=== PATIENT | female | born 1950 | race Caucasian/White ===

== ENCOUNTER 2017-11-19 14:25 | Emergency (ER) | payer MEDICARE ==
--- NOTE | 2017-11-19 15:23 | EDPHYS ---
Physician Documentation [facility] Name: Kenyatta Sosa Age: 67 yrs Sex: Female : 1950 Arrival Date: 11/19/2017 Time: 14:29 Bed Treatment Private MD: ED Physician Eduardo Kamara HPI: 11/19 15:19 This 67 yrs old Female presents to ER via Ambulatory with complaints of Dog jr8 Scratches. 15:19 Onset: The symptoms/episode began/occurred acutely, yesterday. Modifying factors: The jr8 symptoms are alleviated by nothing, the symptoms are aggravated by nothing. Associated signs and symptoms: The patient has no apparent associated signs or symptoms. The patient has not experienced similar symptoms in the past. The patient has not recently seen a physician. stated that she was petting dog. When she directed her attention to something else dog wanted more petting and reached up to grab her arm with its paw causing small skin tears. PCP referred her to ED for evaluation. Historical: - Allergies: 15:04 No Known Allergies; aa5 - Home Meds: 15:04 lisinopril Oral [Active]; aa5 - PMHx: 15:04 Hypertension; aa5 - PSHx: 15:04 Hysterectomy; knees; back sx; Feet; ; aa5 - Immunization history:: Last tetanus immunization: > 10 years ago. - Social history:: Smoking status: Patient/guardian denies using tobacco. - Ebola Screening: : No symptoms or risks identified at this time. ROS: 15:19 Eyes: Negative for injury, pain, redness, and discharge, ENT: Negative for injury, jr8 pain, and discharge, Neck: Negative for injury, pain, and swelling, Cardiovascular: Negative for chest pain, palpitations, and edema, Respiratory: Negative for shortness of breath, cough, wheezing, and pleuritic chest pain, Abdomen/GI: Negative for abdominal pain, nausea, vomiting, diarrhea, and constipation, Back: Negative for injury and pain, MS/Extremity: Negative for injury and deformity, Neuro: Negative for headache, weakness, numbness, tingling, and seizure. 15:19 Skin: Positive for avulsion, of the right wrist. Exam: 15:19 Cardiovascular: Regular rate and rhythm with a normal S1 and S2. No gallops, murmurs, jr8 or rubs. Normal PMI, no JVD. No pulse deficits. Respiratory: Lungs have equal breath sounds bilaterally, clear to auscultation and percussion. No rales, rhonchi or wheezes noted. No increased work of breathing, no retractions or nasal flaring. MS/ Extremity: Pulses equal, no cyanosis. Neurovascular intact. Full, normal range of motion. Neuro: Awake and alert, GCS 15, oriented to person, place, time, and situation. Cranial nerves II-XII grossly intact. Motor strength 5/5 in all extremities. Sensory grossly intact. Cerebellar exam normal. Normal gait. 15:19 Skin: small skin tears to three areas on wrist. No bleeding or oozing. No erythema. No lacerations noted . Vital Signs: 15:04 BP 143 / 83; Pulse 96; Resp 16 S; Temp 98.4(TE); Pulse Ox 96% on R/A; Weight 111.58 kg aa5 (R); Height 5 ft. 6 in. (167.64 cm) (R); Pain 5/10; 15:04 Body Mass Index 39.71 (111.58 kg, 167.64 cm) aa5 MDM: 15:12 Patient medically screened. jr8 15:19 Data reviewed: vital signs, nurses notes, and as a result, I will discharge patient. jr8 Data interpreted: Pulse oximetry: on room air is 96 %. Interpretation: normal. Counseling: I had a detailed discussion with the patient and/or guardian regarding: the historical points, exam findings, and any diagnostic results supporting the discharge/admit diagnosis, the need for outpatient follow up, a family practitioner, to return to the emergency department if symptoms worsen or persist or if there are any questions or concerns that arise at home. 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 Exp: sg 12/13/2019. Lot #: [id number]. } Route: IM; Site: right deltoid; Disposition: 11/20 12:08 Co-signature as Attending Physician, Eduardo Kamara MD I agree with the assessment and norman plan of care. Disposition: 11/19/17 15:22 Discharged to Home. Impression: Avulsion of skin . - Condition is Stable. - Discharge Instructions: Skin Tear Care. - Prescriptions for Keflex 500 mg Oral Capsule - take 1 capsule by ORAL route every 8 hours for 7 days; 21 capsule. - Medication Reconciliation Form, Thank You Letter, Antibiotic Education, Prescription Opioid Use form. - Follow up: Private Physician; When: 1 week; Reason: Wound Recheck, Recheck today's complaints, Continuance of care, Re-evaluation by your physician. - Problem is new. - Symptoms have improved. Signatures: Ramon Taylor RN RN sg Eduardo Kamara MD MD cha Calderon, Audri, RN RN aa5 Kiel Burgos PA PA jr8 Corrections: (The following items were deleted from the chart) 11/19 15:42 15:22 11/19/2017 15:22 Discharged to Home. Impression: Avulsion of skin . Condition is sg Stable. Forms are Medication Reconciliation Form, Thank You Letter, Antibiotic Education, Prescription Opioid Use. Follow up: Private Physician; When: 1 week; Reason: Wound Recheck, Recheck today's complaints, Continuance of care, Re-evaluation by your physician. Problem is new. Symptoms have improved. jr8 15:52 15:42 11/19/2017 15:22 Discharged to Home. Impression: Avulsion of skin . Condition is jr8 Stable. Discharge Instructions: Skin Tear Care. Forms are Thank You Letter, Antibiotic Education, Prescription Opioid Use, Medication Reconciliation Form. Follow up: Private Physician; When: 1 week; Reason: Wound Recheck, Recheck today's complaints, Continuance of care, Re-evaluation by your physician. Problem is new. Symptoms have improved. sg
--- NOTE | 2017-11-19 15:23 | ER ---
Nurse's Notes [facility] Name: Kenyatta Sosa Age: 67 yrs Sex: Female : 1950 Arrival Date: 11/19/2017 Time: 14:29 Bed Treatment Private MD: Diagnosis: Avulsion of skin Presentation: 11/19 15:02 Presenting complaint: Presenting complaint: Patient states: "my dog scratched me aa5 yesterday". Skin tear noted to right wrist, dressing noted. Transition of care: patient was not received from another setting of care. Onset of symptoms was October 2017. Risk Assessment: Do you want to hurt yourself or someone else? Patient reports no desire to harm self or others. Initial Sepsis Screen: Does the patient meet any 2 criteria? No. Patient's initial sepsis screen is negative. Does the patient have a suspected source of infection? No. Patient's initial sepsis screen is negative. Care prior to arrival: None. 15:02 Method Of Arrival: Ambulatory aa5 15:02 Acuity: JAMES 5 aa5 Historical: - Allergies: 15:04 No Known Allergies; aa5 - Home Meds: 15:04 lisinopril Oral [Active]; aa5 - PMHx: 15:04 Hypertension; aa5 - PSHx: 15:04 Hysterectomy; knees; back sx; Feet; ; aa5 - Immunization history:: Last tetanus immunization: > 10 years ago. - Social history:: Smoking status: Patient/guardian denies using tobacco. - Ebola Screening: : No symptoms or risks identified at this time. Vital Signs: 15:04 BP 143 / 83; Pulse 96; Resp 16 S; Temp 98.4(TE); Pulse Ox 96% on R/A; Weight 111.58 kg aa5 (R); Height 5 ft. 6 in. (167.64 cm) (R); Pain 5/10; 15:04 Body Mass Index 39.71 (111.58 kg, 167.64 cm) aa5 ED Course: 14:29 Patient arrived in ED. mr 15:03 Triage completed. aa5 15:03 Arm band placed on. aa5 15:07 [facility]. jr8 15:08 Eduardo Kamara MD is Attending Physician. jr8 15:18 Taylor, Ramon, RN is Primary Nurse. 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 Exp: 12/13/2019. Lot #: [id number]. } Route: IM; Site: right deltoid; Outcome: 15:22 Discharge ordered by MD. fernandes 15:42 Patient left the ED. 15:52 Patient left the ED. jr8 Signatures: Ramon Taylor RN RN sg Rivera, Maria mr RobbinsCarol RN RN aa5 Kiel uBrgos PA PA jr8
[2017-11-19] MEDS ORDERED: TETANUS & DIPHTHERIA TOX,ADULT 0.5 ML VIAL ONE (15:28)
== END 2017-11-19 15:52 | disposition home or self-care (01) ==
LOC: ER 14:25
DX: S61.501A Unspecified open wound of right wrist, initial encounter (principal); X58.XXXA Exposure to other specified factors, initial encounter; Y93.89 Activity, other specified; Y92.9 Unspecified place or not applicable; Z23 Encounter for immunization; I10 Essential (primary) hypertension
CPT/HCPCS: 90714; 99282

== ENCOUNTER 2022-03-02 15:48 | Inpatient (IN) | payer OTHER ==
--- OUTSIDE RECORDS SUMMARY | 2022-03-02 15:50 | XMS REPORT | Continuity of Care Document ---
:1950 Author Organization [facility] t Address [address] [place] [id number] Care Team Providers Name Role Phone Unavailable Unavailable Unavailable Problems This patient has no known problems. Allergies, Adverse Reactions, Alerts This patient has no known allergies or adverse reactions. Medications This patient has no known medications. Procedures This patient has no known procedures. Results Test Description Test Time Test Results Result Source Comments Comments XR Knee 3 Views Patient: KATJA GALE MRN: Right 9 [id number] 18:41:16 Date/Time12/02/2018 18:21 CDTReason for ExamInjuryReportDictation location [id number] knee 3 viewsHISTORY: Pain following injury.COMMENT: Patient is status post right knee arthroplasty. There is anatomic alignment of the prosthesis with minimal lucency surrounding the tibial prosthesis. No acute fracture or dislocation and no joint effusion. No focal lesion or destructive process seen. Surrounding soft tissues are intact.IMPRESSION: No acute findings of the right knee. Final Dictated by: MD Lanier Phebe CDictated DT/TM: 12/02/2018 6:40 pmSigned by: MD Lanier Phebe CSigned (Electronic Signature): 12/02/2018 6:41 pm
[2022-03-02 16:58] LABS: Hematocrit 39.8 % (36.0-45.0); Lymphocytes % 17.4 % (15.3-44.8); MPV 8.9 fL (7.6-11.3); RBC Red Blood Cell Count 4.52 M/uL (3.86-4.86)
[2022-03-02 17:06] LABS: Protime INR 1.03
[2022-03-02 17:26] LABS: Albumin 3.5 g/dL (3.4-5.0); Bilirubin Total 0.4 mg/dL (0.2-1.0); Potassium 3.2 mmol/L (3.5-5.1); Protein, Total 6.7 g/dL (6.4-8.2)
[2022-03-02] MEDS ORDERED: HYDROCODONE/CHLORPHEN 5 ML/OSYR ONE (17:28)
[2022-03-02] MEDS ORDERED: ASPIRIN 81 MG CHEWABLE TABLET ONE (17:29)
[2022-03-02] MEDS ORDERED: ACETAMINOPHEN 500 MG TAB PO PRN (17:37)
[2022-03-02] MEDS ORDERED: ONDANSETRON 4 MG/2 ML VIAL IV PRN (17:37)
[2022-03-02] MEDS ORDERED: CEFTRIAXONE 1000 MG/VIAL ONE (17:44)
[2022-03-02] MEDS ORDERED: NA CHLORIDE 0.9% 50 ML IV ONE (17:44)
--- NOTE | 2022-03-02 17:46 | ER ---
Nurse's Notes [facility] Name: Kenyatta Sosa Age: 71 yrs Sex: Female : 1950 Arrival Date: 03/02/2022 Time: 15:49 Bed 25 Private MD: Sayra Moctezuma C Diagnosis: COPD/ Chronic obstructive pulmonary disease with (acute) exacerbation;Failed outpatient therapy Presentation: 03/02 15:59 Chief complaint: Patient states: she was sent by Dr. Moctezuma for painful breathing. ap3 patient states that it is painful to take a deep breath and it started last night. Coronavirus screen: Client presents with at least one sign or symptom that may indicate coronavirus-19. Ebola Screen: No symptoms or risks identified at this time. Initial Sepsis Screen: Does the patient meet any 2 criteria? HR > 90 bpm. Does the patient have a suspected source of infection? No. Patient's initial sepsis screen is negative. Risk Assessment: Do you want to hurt yourself or someone else? Patient reports no desire to harm self or others. Onset of symptoms was March 01, 2022. 15:59 Method Of Arrival: Wheelchair ap3 15:59 Acuity: JAMES 3 ap3 Triage Assessment: 16:03 General: Appears uncomfortable, ill, Behavior is cooperative, appropriate for age. ap3 Pain: Complains of pain in chest Aggravated by breathing. Neuro: Level of Consciousness is awake, alert, obeys commands, Oriented to person, place, time, situation, Speech is normal. Cardiovascular: Patient's skin is warm and dry. Respiratory: Reports pain with respiration since last night Onset: The symptoms/episode began/occurred yesterday. 16:03 Respiratory: Airway is patent Respiratory effort is even, unlabored, Respiratory ap3 pattern is regular, symmetrical. 17:00 Respiratory: the patient has moderate shortness of breath. eh3 Historical: - Allergies: 16:02 No Known Allergies; ap3 - Home Meds: 16:02 lisinopril Oral [Active]; Celebrex Oral [Active]; gabapentin oral [Active]; ap3 - PMHx: 16:02 Hypertension; Arthritis; ap3 - Immunization history:: Client reports receiving the 2nd dose of the Covid vaccine, Flu vaccine is not up to date. - Social history:: Smoking status: Patient denies any tobacco usage or history of. Screenin:03 Abuse screen: Denies threats or abuse. Nutritional screening: No deficits noted. ap3 Tuberculosis screening: No symptoms or risk factors identified. 17:00 Fall Risk None identified. eh3 Assessment: 17:00 General: Appears in no apparent distress. uncomfortable, Behavior is calm, cooperative, eh3 appropriate for age. Pain: Complains of pain in mid-sternal area and left posterior lower lobe Pain does not radiate. Pain currently is 8 out of 10 on a pain scale. Neuro: Level of Consciousness is awake, alert, obeys commands, Oriented to person, place, time, situation. Cardiovascular: Capillary refill < 3 seconds Patient's skin is warm and dry. Rhythm is sinus rhythm. Respiratory: Reports shortness of breath at rest cough that is productive, persistent pain with cough Airway is patent Respiratory effort is even, unlabored, Respiratory pattern is regular, symmetrical, Breath sounds are diminished in left posterior lower lobe and left posterior upper lobe. GI: No signs and/or symptoms were reported involving the gastrointestinal system. Abdomen is round non-distended. : No signs and/or symptoms were reported regarding the genitourinary system. EENT: No signs and/or symptoms were reported regarding the EENT system. Derm: No signs and/or symptoms reported regarding the dermatologic system. Musculoskeletal: No signs and/or symptoms reported regarding the musculoskeletal system. Circulation, motion, and sensation intact. Range of motion: intact in all extremities. 18:00 Reassessment: Patient appears in no apparent distress at this time. Patient and/or eh3 family updated on plan of care and expected duration. Pain level reassessed. Patient is alert, oriented x 3, equal unlabored respirations, skin warm/dry/pink. Pt complains of 10/10 headache, provider notified. 19:00 Reassessment: Patient appears in no apparent distress at this time. Patient and/or eh3 family updated on plan of care and expected duration. Pain level reassessed. Patient is alert, oriented x 3, equal unlabored respirations, skin warm/dry/pink. Pt states head still hurts, provider notified. 20:00 Reassessment: Patient appears in no apparent distress at this time. Patient and/or eh3 family updated on plan of care and expected duration. Pain level reassessed. Patient is alert, oriented x 3, equal unlabored respirations, skin warm/dry/pink. 20:26 Reassessment: Attempted to call report to 4th floor, nurse busy and states she will 3 call back. 20:56 Reassessment: Attempted to call report to 4th floor, nurse states she is busy and will 3 call back. 21:00 Reassessment: Patient appears in no apparent distress at this time. Patient and/or 3 family updated on plan of care and expected duration. Pain level reassessed. Patient is alert, oriented x 3, equal unlabored respirations, skin warm/dry/pink. 21:30 Reassessment: Attempted to call report to 4th floor, nurse busy and will call back. eh3 22:00 Reassessment: Attempted to call report to 4th floor, nurse busy and will call back. eh3 22:00 Reassessment: Patient appears in no apparent distress at this time. Patient and/or eh3 family updated on plan of care and expected duration. Pain level reassessed. Patient is alert, oriented x 3, equal unlabored respirations, skin warm/dry/pink. Vital Signs: 15:59 BP 159 / 73; Pulse 100; Resp 19; Temp 98.9; Pulse Ox 96% on R/A; Weight 110.68 kg; ap3 Height 5 ft. 7 in. (170.18 cm); 17:00 BP 134 / 90; Pulse 84; Resp 18; Pulse Ox 98% on R/A; eh3 18:00 BP 137 / 75; Pulse 86; Resp 16; Pulse Ox 98% on R/A; eh3 19:00 BP 139 / 55; Pulse 78; Resp 16; Pulse Ox 100% on R/A; eh3 15:59 Body Mass Index 38.22 (110.68 kg, 170.18 cm) ap3 Vitals: 17:00 Cardiac Rhythm Assessment Sinus rhythm. 3 ED Course: 15:49 Patient arrived in ED. rg4 15:49 Sayra Moctezuma MD is Private Physician. rg4 15:55 Jillian Georges, RN is Primary Nurse. ap3 15:58 Vickie Floyd FNP-C [facility]. snw 15:58 Lefty Matthew MD is Attending Physician. snw 16:02 Triage completed. ap3 16:04 Arm band placed on right wrist. ap3 17:00 Patient has correct armband on for positive identification. Bed in low position. Call 3 light in reach. Side rails up X2. Adult w/ patient. Client placed on continuous cardiac and pulse oximetry monitoring. NIBP monitoring applied. Door closed. Noise minimized. Lights dimmed. Warm blanket given. 17:00 IV is patent, with fluids infusing freely, with good blood return. Patient maintains 3 SpO2 saturation greater than 95% on room air. 17:13 Blood Culture Adult (2) Sent. eh3 17:13 CMP Sent. eh3 17:13 Lactate w/ 2H reflex if indic. Sent. eh3 17:36 COVID-19/FLU A+B/RSV Sent. eh3 17:45 Sayra Moctezuma MD is Hospitalizing Provider. [facility] 19:39 Creatine Phosphokinase Sent. eh3 19:54 No provider procedures requiring assistance completed. Patient admitted, IV remains in eh3 place. Administered Medications: 17:35 Drug: Tussionex Pennkinetic ER (chlorpheniramine-hydrocodone) Suspension 5 ml Route: PO;3 19:30 Follow up: Response: Pain is unchanged, physician notified 3 17:40 Not Given (Patient Refused): Aspirin Chewable Tablet 324 mg PO once; 81 mg tablets x 4 eh3 17:50 Drug: Rocephin (cefTRIAXone) 1 grams Route: IV; Rate: calculated rate; Site: right 3 antecubital; 18:00 Follow up: Response: No adverse reaction; IV Status: Completed infusion; IV Intake: [id number] 18:15 Drug: Potassium Effervescent Tablet 50 mEq Route: PO; 3 19:30 Follow up: Response: No adverse reaction 3 18:15 Drug: Tylenol 1000 mg Route: PO; eh3 19:29 Follow up: Response: Pain is unchanged, physician notified 3 19:14 Drug: NS 0.9% 500 ml Route: IV; Rate: bolus; Site: right antecubital; 3 20:24 Follow up: IV Status: Completed infusion; IV Intake: 500ml 3 Medication: 19:54 VIS not applicable for this client. eh3 Intake: 18:00 IV: 50ml; Total: 50ml. eh3 20:24 IV: 500ml; Total: 550ml. 3 Outcome: 17:46 Decision to Hospitalize by Provider. snw 19:54 Admitted to Tele accompanied by tech, family with patient, via wheelchair, room 413, eh3 with chart, Report called to [place] 19:54 Condition: stable 19:54 Instructed on the need for admit. 22:35 Patient left the ED. eh3 Signatures: Vickie Floyd, TATTOO TECHNICIAN-C TATTOO TECHNICIAN-Ning Felix rg4 Jillian Georges RN RN ap3 Sasha Zuniga RN RN eh3 Corrections: (The following items were deleted from the chart) 22:34 19:54 Admitted to ER Hold. Please see [facility] for further documentation. eh3 eh3
--- NOTE | 2022-03-02 17:47 | EDPHYS ---
Physician Documentation [facility] Name: Kenyatta Sosa Age: 71 yrs Sex: Female : 1950 Arrival Date: 03/02/2022 Time: 15:49 Bed 25 Private MD: Sayra Moctezuma C ED Physician Lefty Matthew HPI: 03/02 16:07 This 71 yrs old Female presents to ER via Wheelchair with complaints of Breathing snw Difficulty. 16:07 The patient has shortness of breath at rest. Onset: The symptoms/episode began/occurred snw acutely. Duration: The symptoms are continuous. Associated signs and symptoms: Pertinent positives: fever. Severity of symptoms: At their worst the symptoms were moderate severe. The patient has experienced similar episodes in the past. The patient has been recently seen by a physician: the patient's primary care provider, Dr. Moctezuma with similar presenting complaints, pt on amoxil without improvement, failed outpatient therapy, plan to admit. Historical: - Allergies: 16:02 No Known Allergies; ap3 - Home Meds: 16:02 lisinopril Oral [Active]; Celebrex Oral [Active]; gabapentin oral [Active]; ap3 - PMHx: 16:02 Hypertension; Arthritis; ap3 - Immunization history:: Client reports receiving the 2nd dose of the Covid vaccine, Flu vaccine is not up to date. - Social history:: Smoking status: Patient denies any tobacco usage or history of. ROS: 16:06 Eyes: Negative for injury, pain, redness, and discharge, ENT: Negative for injury, snw pain, and discharge, Neck: Negative for injury, pain, and swelling, Cardiovascular: Negative for chest pain, palpitations, and edema. 16:06 Abdomen/GI: Negative for abdominal pain, nausea, vomiting, diarrhea, and constipation, Back: Negative for injury and pain, : Negative for injury, bleeding, discharge, and swelling, MS/Extremity: Negative for injury and deformity, Skin: Negative for injury, rash, and discoloration, Neuro: Negative for headache, weakness, numbness, tingling, and seizure. 16:06 Constitutional: Positive for body aches, chills, fatigue, fever, malaise. 16:06 Respiratory: Positive for cough, shortness of breath, wheezing. Exam: 16:05 Head/Face: Normocephalic, atraumatic. Eyes: Pupils equal round and reactive to light, snw extra-ocular motions intact. Lids and lashes normal. Conjunctiva and sclera are non-icteric and not injected. Cornea within normal limits. Periorbital areas with no swelling, redness, or edema. ENT: Nares patent. No nasal discharge, no septal abnormalities noted. Tympanic membranes are normal and external auditory canals are clear. Oropharynx with no redness, swelling, or masses, exudates, or evidence of obstruction, uvula midline. Mucous membranes moist. Neck: Trachea midline, no thyromegaly or masses palpated, and no cervical lymphadenopathy. Supple, full range of motion without nuchal rigidity, or vertebral point tenderness. No Meningismus. Chest/axilla: Normal chest wall appearance and motion. Nontender with no deformity. No lesions are appreciated. 16:05 Abdomen/GI: Soft, non-tender, with normal bowel sounds. No distension or tympany. No guarding or rebound. No evidence of tenderness throughout. 16:05 Skin: Warm, dry with normal turgor. Normal color with no rashes, no lesions, and no evidence of cellulitis. Neuro: Awake and alert, GCS 15, oriented to person, place, time, and situation. Cranial nerves II-XII grossly intact. Motor strength 5/5 in all extremities. Sensory grossly intact. Cerebellar exam normal. Normal gait. 16:05 Constitutional: The patient appears alert, awake, uncomfortable. 16:05 Cardiovascular: Rate: tachycardic, Rhythm: regular, JVD: is not appreciated. 16:05 Respiratory: the patient does not display signs of respiratory distress, Respirations: prolonged exhalation, shallow respirations, tachypnea, Breath sounds: rhonchi, that are moderate, are heard in the left posterior upper lobe and left posterior lower lobe, wheezin:05 Back: muscle spasm, is appreciated in the left scapular area. 16:05 Musculoskeletal/extremity: using cane. Vital Signs: 15:59 BP 159 / 73; Pulse 100; Resp 19; Temp 98.9; Pulse Ox 96% on R/A; Weight 110.68 kg; ap3 Height 5 ft. 7 in. (170.18 cm); 17:00 BP 134 / 90; Pulse 84; Resp 18; Pulse Ox 98% on R/A; eh3 18:00 BP 137 / 75; Pulse 86; Resp 16; Pulse Ox 98% on R/A; eh3 19:00 BP 139 / 55; Pulse 78; Resp 16; Pulse Ox 100% on R/A; eh3 15:59 Body Mass Index 38.22 (110.68 kg, 170.18 cm) ap3 MDM: 16:04 Patient medically screened. snw 17:47 Antibiotic administration: COPD exacerbation with failed outpatient amoxil therapy. snw Data reviewed: vital signs, nurses notes. Data interpreted: Pulse oximetry: on room air is 98 %. Interpretation: normal. Counseling: I had a detailed discussion with the patient and/or guardian regarding: the historical points, exam findings, and any diagnostic results supporting the discharge/admit diagnosis, the presence of at least one elevated blood pressure reading (>120/80) during this emergency department visit, lab results, radiology results, the need for further work-up and treatment in the hospital. Physician consultation: A Jose Elias TONY was called at 17:48, regarding admission, patient's condition, discussed failed outpatient therapy. 03/02 16:00 Order name: Blood Culture Adult (2) snw 03/02 16:00 Order name: CBC with Diff; Complete Time: 17:06 snw 03/02 16:00 Order name: CMP; Complete Time: 17:30 snw 03/02 16:00 Order name: Lactate w/ 2H reflex if indic.; Complete Time: 17:17 snw 03/02 16:00 Order name: Protime (+inr); Complete Time: 17:07 snw 03/02 16:00 Order name: Ptt, Activated; Complete Time: 17:07 snw 03/02 16:00 Order name: Troponin High Sensitivity; Complete Time: 17:30 snw 03/02 16:48 Order name: COVID-19/FLU A+B/RSV; Complete Time: 18:10 snw 03/02 17:43 Order name: Glucose, Ancillary Testing; Complete Time: 17:44 EDMS 03/02 17:45 Order name: Urinalysis EDMS 03/02 17:45 Order name: Basic Metabolic Panel EDMS 03/02 17:45 Order name: Basic Metabolic Panel EDMS 03/02 17:45 Order name: CBC with Automated Diff EDMS 03/02 17:45 Order name: CBC with Automated Diff EDMS 03/02 17:45 Order name: Comprehensive Metabolic Panel EDMS 03/02 17:45 Order name: Comprehensive Metabolic Panel EDMS 03/02 17:45 Order name: Creatine Phosphokinase EDMS 03/02 17:45 Order name: Creatine Phosphokinase EDMS 03/02 17:45 Order name: Creatine Phosphokinase EDMS 03/02 17:45 Order name: Creatine Phosphokinase EDMS 03/02 17:45 Order name: Lipid Profile EDMS 03/02 17:45 Order name: Lipid Profile EDMS 03/02 17:45 Order name: Magnesium EDMS 03/02 17:45 Order name: Magnesium EDMS 03/02 17:45 Order name: Phosphorus EDMS 03/02 17:45 Order name: Phosphorus EDMS 03/02 17:49 Order name: Chest Pa And Lat (2 Views) XRAY snw 03/02 19:07 Order name: RAD; Complete Time: 19:09 EDMS 03/02 16:00 Order name: EKG; Complete Time: 16:01 snw 03/02 16:00 Order name: Accucheck; Complete Time: 17:35 snw 03/02 16:00 Order name: Cardiac monitoring; Complete Time: 17:13 snw 03/02 16:00 Order name: EKG - Nurse/Tech; Complete Time: 17:27 snw 03/02 16:00 Order name: IV Saline Lock - Large Bore; Complete Time: 17:13 snw 1208 16:00 Order name: Labs collected and sent; Complete Time: 17:13 snw 08 16:00 Order name: O2 Per Protocol; Complete Time: 17:13 snw 08 16:00 Order name: O2 Sat Monitoring; Complete Time: 17:13 snw 08 16:00 Order name: Vital Signs; Complete Time: 17:29 snw 03/02 17:45 Order name: Heart Healthy EDMS EC:25 Rate is 83 beats/min. Rhythm is regular. QRS [place] is Normal. AR interval is normal. No snw ST changes noted. Clinical impression: NSR w/ Non-specific ST/T Changes. Administered Medications: 17:35 Drug: Tussionex Pennkinetic ER (chlorpheniramine-hydrocodone) Suspension 5 ml Route: PO;eh3 19:30 Follow up: Response: Pain is unchanged, physician notified [facility] 17:40 Not Given (Patient Refused): Aspirin Chewable Tablet 324 mg PO once; 81 mg tablets x 4 [facility] 17:50 Drug: Rocephin (cefTRIAXone) 1 grams Route: IV; Rate: calculated rate; Site: right [facility] antecubital; 18:00 Follow up: Response: No adverse reaction; IV Status: Completed infusion; IV Intake: [id number] 18:15 Drug: Potassium Effervescent Tablet 50 mEq Route: PO; [facility] 19:30 Follow up: Response: No adverse reaction [facility] 18:15 Drug: Tylenol 1000 mg Route: PO; [facility] 19:29 Follow up: Response: Pain is unchanged, physician notified [facility] 19:14 Drug: NS 0.9% 500 ml Route: IV; Rate: bolus; Site: right antecubital; [facility] 20:24 Follow up: IV Status: Completed infusion; IV Intake: 500ml [facility] Disposition Summary: 03/02/22 17:46 Hospitalization Ordered Hospitalization Status: Inpatient Admission snw Provider: Sayra Moctezuma Location: Telemetry/MedSur (Inpatient) snw Condition: Stable snw Problem: an acute exacerbation snw Symptoms: have worsened snw Bed/Room Type: Standard snw Room Assignment: 413(03/02/22 21:04) Diagnosis - COPD/ Chronic obstructive pulmonary disease with (acute) exacerbation snw - Failed outpatient therapy snw Forms: - Medication Reconciliation Form snw - SBAR form snw Addendum: 03/05/2022 19:09 Co-signature as Attending Physician, Lefty Matthew MD. r n Signatures: Dispatcher [employer] Vickie Allen, MILL ROLL OPERATOR-C MILL ROLL OPERATOR-Csnw Lefty Matthew MD MD rn Garcia, Cindy RN RN Jillian Georges RN RN [facility] Sasha Zuniga RN RN [facility] Jewell Sky [facility] Corrections: (The following items were deleted from the chart) 03/02 20:22 17:46 snw rv1 21:04 20:22 411 rv1 cg
[2022-03-02] MEDS: NA CHLORIDE 0.9% 1,000 ML IV SCH (18:00)
[2022-03-02] MEDS: ENOXAPARIN 40 MG/0.4 ML SQ SCH (18:00)
[2022-03-02] MEDS ORDERED: Levofloxacin500mg IV 500 MG/100 ML BAG IV SCH (18:00)
[2022-03-02 18:09] LABS: SARS-COV-2 RT PCR NEGATIVE (NEGATIVE)
[2022-03-02] MEDS ORDERED: POTASSIUM 25 MEQ EFFERV TAB ONE (18:11)
[2022-03-02] MEDS ORDERED: ACETAMINOPHEN 500 MG TAB ONE (18:11)
--- NOTE | 2022-03-02 19:06 | RAD REPORT ---
EXAM DESCRIPTION: RAD - Chest Pa And Lat (2 Views) - 03/02/2022 6:49 pm CLINICAL HISTORY: COPD Chest pain. COMPARISON: Chest Pa And Lat (2 Views) dated 08/02/2021 TECHNIQUE: PA and lateral views of the chest were obtained. FINDINGS: The lungs are hyperexpanded compatible with COPD. Small hiatal hernia. The heart is upper limit of normal in size. No fracture or aggressive bony process. IMPRESSION: COPD without acute process identified.
[2022-03-02] MEDS ORDERED: NA CHLORIDE 0.9% 500 ML ONE (19:14)
[2022-03-02] MEDS: ALBUTEROL 2.5 MG/3 ML NEB SOL NEB SCH (20:00)
[2022-03-02] MEDS: IPRATROPIUM BROM 0.5MG/2.5ML NEB SCH (20:00)
[2022-03-02] MEDS ORDERED: Levofloxacin500mg IV 500 MG/100 ML BAG IV ONE (20:13)
[2022-03-02] MEDS ORDERED: NA CHLORIDE 0.9% 1,000 ML ONE (20:13)
[2022-03-02] MEDS ORDERED: GABAPENTIN 300 MG CAP ONE (20:13)
[2022-03-02] MEDS ORDERED: ENOXAPARIN 40 MG/0.4 ML SQ ONE (20:14)
[2022-03-02] MEDS: GABAPENTIN 300 MG CAP PO SCH (21:00)
[2022-03-02] MEDS: METHYLPREDNISOLONE 40 MG INJ IV SCH (22:00)
[2022-03-02] MEDS ORDERED: METHYLPREDNISOLONE 40 MG INJ ONE (22:26)
[2022-03-02 22:44] VITALS: BMI 38.9
[2022-03-02] MEDS ORDERED: IBUPROFEN 400 MG TAB PO PRN (23:27)
[2022-03-03] MEDS: PHENOL 1.4% ORAL SPRAY 180ML MM PRN ×2 (00:20→20:38)
[2022-03-03] MEDS: ALBUTEROL 2.5 MG/3 ML NEB SOL NEB SCH ×5 (00:40→19:02)
[2022-03-03] MEDS: IPRATROPIUM BROM 0.5MG/2.5ML NEB SCH ×5 (00:40→19:02)
[2022-03-03] MEDS: METHYLPREDNISOLONE 40 MG INJ IV SCH ×3 (01:00→17:07)
[2022-03-03 04:45] LABS: Absolute Lymphocytes (CBC) 0.7 K/uL (0.7-4.9); Hematocrit 37.4 % (36.0-45.0); Lymphocytes % 7.3 % (15.3-44.8); MCV 87.8 fL (80-100); MPV 9.1 fL (7.6-11.3); RBC Red Blood Cell Count 4.26 M/uL (3.86-4.86)
[2022-03-03 05:09] LABS: Albumin 3.2 g/dL (3.4-5.0); Bilirubin Total 0.2 mg/dL (0.2-1.0); Phosphorus 1.7 mg/dL (2.5-4.9); Potassium 3.4 mmol/L (3.5-5.1); Protein, Total 6.5 g/dL (6.4-8.2)
[2022-03-03] MEDS: NA CHLORIDE 0.9% 1,000 ML IV SCH (06:30)
[2022-03-03] MEDS ORDERED: INFLUENZA VACCINE (for 6+ mo) 0.5 ML DOSE IMVAC ONE (08:00)
[2022-03-03] MEDS ORDERED: POTASSIUM 25 MEQ EFFERV TAB PO ONE (08:00)
[2022-03-03] MEDS: CEFTRIAXONE 1,000 MG in NA CHLORIDE 0.9% 50 ML IVPB SCH (08:28)
[2022-03-03] MEDS: POTASS/SODIUM PHOSPHATE 1 PKT POWD.PACK PO SCH ×3 (08:32→10:21)
[2022-03-03] MEDS: lisinopriL 10 MG TAB PO SCH (08:33)
[2022-03-03] MEDS: ENOXAPARIN 40 MG/0.4 ML SQ SCH (08:36)
[2022-03-03] MEDS ORDERED: CELECOXIB 100 MG CAPSULE PO SCH (09:00)
[2022-03-03] MEDS: Levofloxacin 750mg IV 750 MG/150 ML BAG IV SCH (09:24)
[2022-03-03] MEDS ORDERED: lisinopriL 10 MG TAB PO ONE (09:45)
[2022-03-03 11:00] LABS: Specific Gravity 1.014 (1.005-1.030); Transitional Epithelial <5 /HPF (None Seen); Urine Bilirubin NEGATIVE (Negative); Urine Blood Negative (Negative); Urine Clarity Clear (Clear); Urine Color Light-Yellow (Yellow); Urine Glucose NEGATIVE (Negative); Urine Protein NEGATIVE (Negative); Urine Urobilinogen Normal (Normal)
--- NOTE | 2022-03-03 12:37 | RAD REPORT ---
EXAM DESCRIPTION: CT - Thorax Wo Con - 03/03/2022 11:09 am CLINICAL HISTORY: COPD, coughing, wheezing COMPARISON: Chest Pa And Lat (2 Views) dated 03/02/2022 TECHNIQUE: Axial 5 mm thick images of the chest were obtained without IV contrast. All CT scans are performed using dose optimization technique as appropriate and may include automated exposure control or mA/KV adjustment according to patient size. FINDINGS: Trace atelectasis present in each posterior gutter. No focal infiltrate of the lung parenc hyma. No mass or nodularity seen. No pleural thickening or pleural effusion. No pneumothorax. No abnormal mediastinal or hilar masses or lymphadenopathy seen. No gross aortic or pulmonary artery finding suspected. Assessment is limited in the absence of IV contrast. Heart size is in the upper n ormal range with no pericardial thickening or pericardial effusion. No bronchial wall thickening or e ndobronchial lesion identifiable. No chest wall mass or abnormal axillary lymphadenopathy. Thoracic spine degenerative changes are present. No acute or pathologic bone process seen. Prior vert ebroplasty intervertebral body near the thoracolumbar junction. IMPRESSION: No pneumonia, mass or other acute lung parenchymal process. No significant or suspicious findings identified.
[2022-03-03] MEDS: DULERA 200/5 (MOMETASONE/FORMOTEROL) INHALER IH SCH ×2 (13:32→20:32)
[2022-03-03] MEDS ORDERED: NA CHLORIDE 0.9% 1,000 ML IV SCH (14:04)
[2022-03-03] MEDS: TRAMADOL HCL 50 MG TAB PO PRN ×2 (14:27→20:31)
[2022-03-03] MEDS ORDERED: POTASSIUM CL SA 10 MEQ TAB PO ONE (14:40)
--- NOTE | 2022-03-03 15:21 | RAD REPORT ---
EXAM DESCRIPTION: CT - Head Brain Wo Cont - 03/03/2022 3:10 pm CLINICAL HISTORY: headache COMPARISON: Sinus Wo Cont dated 10/27/2020 TECHNIQUE: Axial 5 mm thick images of the head were obtained without IV contrast. All CT scans are performed using dose optimization technique as appropriate and may include automated exposure control or mA/KV adjustment according to patient size. FINDINGS: No intracranial hemorrhage, mass, edema or shift of mid-line structures. No acute infarcti on changes seen. No abnormal extra-axial fluid collections. No significant atrophy or chronic ischemi c change. Ventricles are normal. Right-side mastoid air cells are clear. There is a trace amount of fluid in the left side mastoid air cells. Mucosal thickening with air-fluid levels present in each maxillary sinus. The sphenoid sinus , ethmoid air cells and small frontal sinuses are clear. No acute bony findings. IMPRESSION: No intracranial abnormality identifiable. Bilateral maxillary sinus air-fluid levels and trace amount of fluid in the left mastoid air cells. C orrelation is needed to determine if the patient's headache may represent sinusitis.
--- NOTE | 2022-03-03 17:39 | EKG ---
Test Date: 2022-03-02 Test Time: 17:20:06 Pie Bottomer: DARRELL MEASUREMENT RESULTS: Intervals: Rate: 83 [place]: 168 QRSD: 84 QT: 390 QTc: 458 [place]: P: 41 [place]: 168 QRS: -2 T: 22 INTERPRETIVE STATEMENTS: Normal sinus rhythm Minimal voltage criteria for LVH, may be normal variant Nonspecific ST abnormality Abnormal ECG No previous ECG available for comparison Electronically Signed On 03-03-22 17:37:20 ASSOCIATE PROFESSOR OF SOCIOLOGY by Harley Saha
[2022-03-03] MEDS: CELECOXIB 100 MG CAPSULE PO SCH (20:32)
[2022-03-03] MEDS: GABAPENTIN 300 MG CAP PO SCH (20:32)
[2022-03-03] MEDS: FLUTICASONE 50MCG NASAL SPRAY NAS SCH (20:33)
--- NOTE | 2022-03-04 00:21 | HP ---
Date of Admission: 03/02/2022 Laboratory Data: White count 11.4, hemoglobin 13.8, platelets 228. Sodium 138, potassium 3.2, chlor ryan 104, bicarb 28, BUN 17, creatinine 0.76, glucose 114. Liver function tests unremarkable. HERI/MODL Voice ID: [id number]
--- NOTE | 2022-03-04 00:27 | HP ---
Date of Admission: 03/02/2022 Chief Complaint: Sore throat, cough, congestion, and shortness of breath. History Of Present Illness: This is a 71-year-old female patient who came into office today with com plaints of cough; chest, nasal, and sinus congestion; sore throat; coughing up some thick colored muc us; shortness of breath and wheezing. The patient had failed outpatient therapy. She was treated re cently with oral steroids as well as the antibiotics and she has not improved and today she came back to office. After she was evaluated, she was admitted to the hospital. The patient was sent to [facility] room from the office and details were discussed with the ER provider and after evaluation was c ompleted, decision was made to admit her to hospital. The patient is also complaining of pain in the left posterior chest area with breathing in last few days. Allergies: NO KNOWN ALLERGIES. Medications: Fluticasone nasal spray 1 spray each nostril 2 times a day, gabapentin 300 mg daily at bedtime, lisinopril/HCTZ 20/25 one tablet by mouth daily, and levocetirizine 5 mg daily. Review of Systems: Respiratory: As mentioned above. ENT: As mentioned above. All other systems reviewed and negative. Past Medical History: Peripheral neuropathy, allergic rhinitis, COPD, hypertension, hyperlipidemia, irritable bowel syndrome, diverticulosis, and osteoarthritis at multiple sites. Past Surgical History: Significant for tonsillectomy, , hysterectomy, kyphoplasty in 2004, knee surgery, and foot surgery. Family History: Parents , details unknown. Brother due to unknown type of cancer. Sister , details unknown. Social History: Prior history of smoking, not at present time. Use of alcohol is negative. Physical Examination: Vital Signs: Blood pressure 113/69, pulse , respiratory rate , temperature , weight 248.8 pounds, and height 66.5 inches. General: Awake, alert, oriented, not in distress. HEENT: Head atraumatic, normocephalic. Conjunctivae nonerythematous. Sclerae white. Mouth, no thr ush or edema noted. Ears/Nose, no mass, lesion, discharge noted. Neck: Supple. No JVD, lymph nodes, bruit, thyromegaly noted. Lungs: The patient has bilateral good equal air entry. Clear to auscultation except presence of whe ezing on both side and rales noted in left lung. Heart: Normal heart sounds, no murmur or gallop. Abdomen: Soft, bowel sounds normal. No guarding, rigidity, tenderness, mass, hepatosplenomegaly, dis tention, or bruit noted. Extremities: No leg edema. No calf tenderness. Skin: No rash, ulcer, cellulitis. Lymphatics: No lymph node enlargement in neck, supraclavicular, infraclavicular region. Neuro: No focal neurological deficit. Chest: Unremarkable. External Genitalia: Deferred. Rectal: Deferred. Laboratory Data: Chest x-ray: No acute cardiopulmonary changes. WBC , hemoglobin ___, platelets . Sodium , potassium , chloride , bicarb ____ , BUN , creatinine , glucose . Influenza A, B, and COVID-19 test negative. Impression: 1.Acute exacerbation of chronic obstructive pulmonary disease. 2.Hypertension. 3.Hyperlipidemia. 4.Allergic rhinitis. 5.Peripheral neuropathy. 6.Diverticulosis. 7.Osteoarthritis, multiple sites. Plan: Admit patient to hospital for further evaluation and management of this problem. The patient is appropriate for inpatient and is expected to spend 2 midnights in hospital. We will go ahead and start the patient on oxygen nebulizer treatment, IV steroid using Solu-Medrol, and IV antibiotics per order. Sputum culture was ordered. We will go ahead and give DVT prophylaxis using Lovenox per ord er. For hypertension, we will continue antihypertensive medication per order. Monitor blood pressur e if necessary, adjust medication. For hyperlipidemia, patient is not on any medication at home. Fo r allergic rhinitis, we will continue her home medications per order. Details and plan of treatment discussed with the patient. I will see her tomorrow for followup. HERI/MODL Voice ID: [id number]
[2022-03-04] MEDS: IPRATROPIUM BROM 0.5MG/2.5ML NEB SCH ×2 (01:00→08:08)
[2022-03-04] MEDS: ALBUTEROL 2.5 MG/3 ML NEB SOL NEB SCH ×2 (01:00→08:00)
[2022-03-04] MEDS: METHYLPREDNISOLONE 40 MG INJ IV SCH ×2 (01:01→08:36)
[2022-03-04 05:06] LABS: Phosphorus 2.8 mg/dL (2.5-4.9); Potassium 4.5 mmol/L (3.5-5.1)
[2022-03-04] MEDS: TRAMADOL HCL 50 MG TAB PO PRN ×2 (08:23→13:40)
[2022-03-04] MEDS: FLUTICASONE 50MCG NASAL SPRAY NAS SCH (08:25)
[2022-03-04] MEDS: CELECOXIB 100 MG CAPSULE PO SCH (08:25)
[2022-03-04] MEDS: DULERA 200/5 (MOMETASONE/FORMOTEROL) INHALER IH SCH (08:25)
[2022-03-04] MEDS: lisinopriL 10 MG TAB PO SCH (08:26)
[2022-03-04] MEDS: Levofloxacin 750mg IV 750 MG/150 ML BAG IV SCH (08:33)
[2022-03-04] MEDS: ENOXAPARIN 40 MG/0.4 ML SQ SCH (08:36)
[2022-03-04] MEDS: CEFTRIAXONE 1,000 MG in NA CHLORIDE 0.9% 50 ML IVPB SCH (10:21)
[2022-03-04 10:32] VITALS: O2SAT 98
--- NOTE | 2022-03-04 12:26 | PN ---
Date of Progress Note: 03/03/2022 Subjective: The patient was seen this morning for followup. Her son was present with her at bedside . She feels better today compared to yesterday. Still has some cough, chest congestion, and occasio mildred coughs up thick slightly yellow colored mucus. She is complaining of lot of sinus headache. H er headache is in the temporal and frontal area on both sides. Objective: Vital Signs: Reviewed. HEENT: Unremarkable. Lungs: Bilateral good equal air entry. Presence of some wheezing, but overall much better than befo re. Not using any accessory muscles of respiration. Heart: Sounds normal. Abdomen: Soft. Bowel sounds normal. No guarding, rigidity, tenderness, distention. Extremities: No leg edema. Laboratory Data: Blood culture negative. Sputum culture pending. CAT scan of the chest done today, does not show any acute cardiopulmonary changes and CAT scan of the head was done after I saw her to day. It does not show any acute intracranial changes, but it does show changes of some inflammation in her maxillary sinuses, mastoid process. Impression: 1.Acute exacerbation of chronic obstructive pulmonary disease. 2.Hypertension. 3.Allergic rhinitis. 4.Headache. Plan: We will go ahead and continue current antibiotic, steroids, nebulizer treatment. We will add inhaler Dulera per order. Continue current DVT prophylaxis. I will see her tomorrow for followup and plan of treatment discussed with t daysi patient and her son. HERI/MODL Voice ID: [id number] Report ID: [id number]
[2022-03-04 13:17] VITALS: BP 161/74; TEMP 98.2
--- NOTE | 2022-03-06 06:42 | ECHO ---
HEIGHT: 5 ft 7 in WEIGHT: 249 lb 1.6 oz DATE OF STUDY: 03/03/[address]: Eric Moctezuma MD 2-DIMENSIONAL: YES M.MODE: YES DOPPLER: YES COLOR FLOW: YES TDS: YES PORTABLE: YES DEFINITY: BUBBLE STUDY: DIAGNOSIS: CHRONIC ONSTRUCTIVE PULMONARY DISEASE CARDIAC HISTORY: CATHERIZATION: SURGERY: PROSTHETIC VALVE: PACEMAKER: MEASUREMENTS (cm) DIASTOLIC (NORMALS) SYSTOLIC (NORMALS) IVSd 1.1 (0.6-1.2) LA Diam 3.5 (1.9-4.0) LVEF 57% LVIDd 4.6 (3.5-5.7) LVIDs 3.2 (2.0-3.5) %FS 30% LVPWd 1.4 (0.6-1.2) Ao Diam 2.3 (2.0-3.7) 2 DIMENSIONAL ASSESSMENT: RIGHT ATRIUM: NORMAL LEFT ATRIUM: NORMAL RIGHT VENTRICLE: NORMAL LEFT VENTRICLE: NORMAL TRICUSPID VALVE: NORMAL MITRAL VALVE: MILD MITRAL REGURGITATION PULMONIC VALVE: NORMAL AORTIC VALVE: NORMAL PERICARDIAL EFFUSION: NONE AORTIC ROOT: NORMAL LEFT VENTRICULAR WALL MOTION: NORMAL DOPPLER/COLOR FLOW: MILD MITRAL REGURGITATION COMMENTS: 1. NORMAL LEFT VENTRICULAR EJECTION FRACTION 55-60% 2. NORMAL WALL MOTION 3. MILD MITRAL REGURGITATION TECHNOLOGIST: STEFFEN BALDERRAMA
== END 2022-03-04 13:48 | disposition home or self-care (01) | DRG 192 ==
LOC: ER 15:48 → ERHOLD 17:43 → 4TH 20:24
PROVIDERS: ADMIT Internal Medicine; ATTEND Internal Medicine
DX: J44.1 Chronic obstructive pulmonary disease with (acute) exacerbation (principal); I10 Essential (primary) hypertension; J30.9 Allergic rhinitis, unspecified; E78.5 Hyperlipidemia, unspecified; R51.9 Headache, unspecified; K57.90 Diverticulosis of intestine, part unspecified, without perforation or abscess without bleeding; G62.9 Polyneuropathy, unspecified; M15.9 Polyosteoarthritis, unspecified; K58.9 Irritable bowel syndrome, unspecified; Z20.822 Contact with and (suspected) exposure to COVID-19; Z79.899 Other long term (current) drug therapy; Z87.891 Personal history of nicotine dependence; Z90.710 Acquired absence of both cervix and uterus; Z80.9 Family history of malignant neoplasm, unspecified
CPT/HCPCS: 0241U; 36415; 70450; 71046; 71250; 80048; 80053; 80061; 81001; 82550; 82947; 83605; 83735; 84100; 84132; 84484; 85025; 85610; 85730; 87040; 87070; 87205; 93005; 93306; 94640; 94760; 96361; 96374; 99285; J1650; J2920; J3535; J7030; J7040; J7613; J7644

== ENCOUNTER 2022-12-29 12:24 | Emergency (ER) | payer MEDICARE ==
--- OUTSIDE RECORDS SUMMARY | 2022-12-29 12:27 | XMS REPORT | Continuity of Care Document ---
:1950 Author Organization [facility] t Address [address] [facility] [address] [place] [address] Care Team Providers Name Role Phone Asked, No Pcp Primary Care Physician Unavailable YOAN CHAPIN Attending Clinician Unavailable Nuvia TONY, Kris Joya Attending Clinician Ajay Harris MA Attending Clinician Unavailable Brisa Izaguirre MA Attending Clinician Unavailable Noemy Colin Attending Clinician Unavailable Lamberto Kim MD Attending Clinician Payers Payer Name Policy Type Policy Number Effective Date Expiration Date S daniel [facility] [id number] 2022 (MEDICARE 00:00:00 REPLACEMENT HMO) Problems This patient has no known problems. Allergies, Adverse Reactions, Alerts This patient has no known allergies or adverse reactions. Social History Social Habit Start Date Stop Date Quantity Comments Source Sexual orientation [facility] Gender identity [facility] Sex Assigned At [birth year] [facility] 00:00:00 00:00:00 Smoking Status Start Date Stop Date Source Tobacco smoking consumption unknown [facility] Medications Ordered Filled Start Stop Current Ordering Indication Dosage Frequency Signature Comments Components Source Medication Medication Date Date Medication? Clinician (SIG) Name Name methocarbam 2022-0 Yes [id number] 500mg Q.[id number] Take 1 [facility]-[id number] (ROBAXIN) 00:00: 3D (500 mg Hospi ta 500 MG 00 total) by l tablet mouth 3 (three) times a day. methocarbam 2023-0 Yes [id number] 500mg Q.[id number] Take 1 [facility] 10-[id number] (ROBAXIN) 00:00: 3D (500 mg Hospi ta 500 MG 00 total) by l tablet mouth 3 (three) times a day. methocarbam 2023-0 2023- No [id number] TAKE ONE [facility] 10-12 (1) st (ROBAXIN) 00:00: 00:00 TABLET(S) Ho spita 500 MG 00 :00 BY MOUTH l tablet THREE TIMES A DAY. methocarbam 3-0 2023- No [id number] TAKE ONE [facility] o[facility] 10-12 (1) st (ROBAXIN) 00:00: 00:00 TABLET(S) Ho spita 500 MG 00 :00 BY MOUTH l tablet THREE TIMES A DAY. gabapentin 2023-0 2023- No [id number] 300mg Q.25D Take 1 [facility] (NEURONTIN) 09-[address] 300 mg 00:00: 04:59 (300 mg Hospita capsule 00 :00 total) by l mouth 4 (four) times a day for 90 days. Take one in the am, one in the afternoon, and two (600mg) in the evening. gabapentin 2023-0 2023- No [id number] 300mg Q.25D Take 1 [facility] (NEURONTIN) 09-[address] 300 mg 00:00: 04:59 (300 mg Hospita capsule 00 :00 total) by l mouth 4 (four) times a day for 90 days. Take one in the am, one in the afternoon, and two (600mg) in the evening. methocarbam 2023-0 2023- No [id number] 500mg Q.[id number] Take 1 [facility] 09-20- [id number] tablet st (ROBAXIN) 00:00: 00:00 3D (500 mg Hosp samantha 500 MG 00 :00 total) by l tablet mouth 3 (three) times a day. methocarbam 2023-0 2023- No [id number] 500mg Q.05981176 Take 1 [facility] 09-20- [id number] tablet st (ROBAXIN) 00:00: 00:00 3D (500 mg Hosp samantha 500 MG 00 :00 total) by l tablet mouth 3 (three) times a day. Vital Signs Vital Name Observation Time Observation Value Comments Source Systolic blood 2022-10-13 16:21:00 174 mm[Hg] [facility] pressure Diastolic blood 2022-10-13 16:21:00 93 mm[Hg] [facility] pressure Heart rate 2022-10-13 16:21:00 73 /min [facility] Body height 2022-10-13 16:21:00 180.3 cm [facility] Body weight 2022-10-13 16:21:00 111.131 kg [facility] BMI 2022-10-13 16:21:00 34.17 kg/m2 [facility] Procedures Procedure Date / Time Performed Performing Clinician [facility] e MRI CERVICAL SPINE WO 2022-12-20 16[facility]58[facility] 2022-12-20 [facility] SACRUM AND COCCYX 2022-10-13 18:02:02 [facility] XR SACROILIAC JOINTS 3+ 2022-10-13 18:01:39 [facility] VW XR LUMBAR SPINE AP 2022-10-13 18:01:12 [facility] LATERAL FLEXION AND EXTENSION MRI SPINE EXTERNAL STUDY 2022-08-18 20:39:22 [facility] XR SPINE EXTERNAL STUDY 2022-08-04 21:44:59 [facility] ALLERGEN, REGION 10 2022-04-24 23:01:00 [facility] RESPIRATORY PANEL IGE, [facility] ([place], [place]) ASPERGILLUS AB BY CF, 2022-04-24 23:01:00 [facility] SERUM CBC WITH PLATELET AND 2022-04-24 23:01:00 [facility] DIFFERENTIAL IGG SUBCLASSES 2022-04-24 23:01:00 [facility] IMMUNCAP SCORE 2022-04-24 23:01:00 [facility] Plan of Care Planned Activity Planned Date Details Comments Source Future Scheduled 2022-12-29 Screening for [facility] Test 12:27:14 malignant neoplasm of colon (procedure) [code = 830133321] Future Scheduled 2022-12-29 Screening for [facility] Test 12:27:14 malignant neoplasm of colon (procedure) [code = 044480009] Future Scheduled 2022-12-29 Screening for [facility] Test 12:27:14 malignant neoplasm of colon (procedure) [code = 133073624] Future Scheduled 2022-12-29 COVID-19 VACCINE (#1) [facility] Test 12:27:14 [code = COVID-19 VACCINE (#1)] Future Scheduled 2022-12-29 Hepatitis C screening [facility] Test 12:27:14 (procedure) [code = 257588728] Future Scheduled 2022-12-29 BREAST CANCER [facility] Test 12:27:14 SCREENING [code = BREAST CANCER SCREENING] Future Scheduled 2022-12-29 Screening for [facility] Test 12:27:14 malignant neoplasm of colon (procedure) [code = 032242589] Future Scheduled 2022-12-29 Screening for [facility] Test 12:27:14 malignant neoplasm of colon (procedure) [code = 604475015] Future Scheduled 2022-12-29 SHINGLES VACCINES (1 [facility] Test 12:27:14 of 2) [code = SHINGLES VACCINES (1 of 2)] Future Scheduled 2022-12-29 65+ PNEUMOCOCCAL [facility] Test 12:27:14 VACCINE (1 - PCV) [code = 65+ PNEUMOCOCCAL VACCINE (1 - PCV)] Future Scheduled 2022-12-29 INFLUENZA VACCINE (#1) [facility] Test 12:27:14 [code = INFLUENZA VACCINE (#1)] Future Scheduled 2022-12-11 Screening for [facility] Test 11:42:16 malignant neoplasm of colon (procedure) [code = 634021254] Future Scheduled 2022-12-11 Screening for [facility] Test 11:42:16 malignant neoplasm of colon (procedure) [code = 511798074] Future Scheduled 2022-12-11 Screening for [facility] Test 11:42:16 malignant neoplasm of colon (procedure) [code = 617356338] Future Scheduled 2022-12-11 COVID-19 VACCINE (#1) [facility] Test 11:42:16 [code = COVID-19 VACCINE (#1)] Future Scheduled 2022-12-11 Hepatitis C screening [facility] Test 11:42:16 (procedure) [code = 057461227] Future Scheduled 2022-12-11 BREAST CANCER [facility] Test 11:42:16 SCREENING [code = BREAST CANCER SCREENING] Future Scheduled 2022-12-11 Screening for [facility] Test 11:42:16 malignant neoplasm of colon (procedure) [code = 700363363] Future Scheduled 2022-12-11 Screening for [facility] Test 11:42:16 malignant neoplasm of colon (procedure) [code = 882344264] Future Scheduled 2022-12-11 SHINGLES VACCINES (1 [facility] Test 11:42:16 of 2) [code = SHINGLES VACCINES (1 of 2)] Future Scheduled 2022-12-11 65+ PNEUMOCOCCAL [facility] Test 11:42:16 VACCINE (1 - PCV) [code = 65+ PNEUMOCOCCAL VACCINE (1 - PCV)] Future Scheduled 2022-12-11 INFLUENZA VACCINE (#1) [facility] Test 11:42:16 [code = INFLUENZA VACCINE (#1)] Encounters Start End Encounter Admission Attending Care Care Encounter Source Date/Time Date/Time Type Type Clinicians Facility Department ID 2022-12-20 2022-12-20 Outpatient [facility] [id number] [place] 00:00:00 00:00:00 YOAN [address] 2022-12-20 2022-12-20 Outpatient [facility] [id number] [place] 00:00:00 00:00:00 YOAN [address] 2022-12-11 2022-12-11 Office Felipe, 1.2.840.1 [id number] 2100 [id number] [facility] 11:30:00 12:44:19 Visit Yoan 09318.1.[address] [facility] st 3.430.2.7 Hospit a .3.710789 l .8 2022-12-11 2022-12-11 Office Felipe, 1.2.840.1 [id number] 2099 [id number] [facility] 11:30:00 12:44:19 Visit Yoan 11081.1.[address] 3.430.2.7 Hospit a .3.669829 l .8 2022-10-31 2022-10-31 Procedure Nuvia, 1.2.840.1 [id number] Method[facility] 11:00:00 11:37:11 visit Kris 66305.1.[address] [place] 3.430.2.7 Hospit a .3.593286 l .8 2022-10-31 2022-10-31 Procedure Nuvia, 1.2.840.1 [id number] 011 [id number] Methodi 11:00:00 11:37:11 visit Kris 75824.1.[address] To[place] 3.430.2.7 Hospit a .3.433833 l .8 2022-10-19 2022-10-19 Telephone [place], 1.2.840.1 [id number] 2099 [id number] Methodi 00:00:00 00:00:[address] 3.430.2.7 Hospit a .3.897893 l .8 2022-10-19 2022-10-19 Telephone [place], 1.2.840.1 [id number] 2099 [id number] Methodi 00:00:00 00:00:[address] 3.430.2.7 Hospit a .3.797593 l .8 2022-10-18 2022-10-18 Orders Felipe, 1.2.840.1 [id number] 2099 [id number] Methodi 00:00:00 00:00:00 Only Yoan 13687.1.[address] 3.430.2.7 Hospit a .3.421093 l .8 2022-10-18 2022-10-18 Orders Felipe, 1.2.840.1 [id number] 2099 [id number] Methodi 00:00:00 00:00:00 Only Yoan 83294.1.[address] 3.430.2.7 Hospit a .3.314388 l .8 2022-10-13 2022-10-13 [facility], 1.2.840.1 [id number] 2099 [id number] Methodi 12:19:14 23:59:00 Encounter Kris 67187.1.[address] [place] 3.430.2.7 Hospit a .3.191921 l .8 2022-10-13 2022-10-13 [facility], 1.2.840.1 [id number] 2099 [id number] Methodi 12:19:14 23:59:00 Encounter Kris 39666.1.[address] [place] 3.430.2.7 Hospit a .3.196521 l .8 2022-10-13 2022-10-13 [facility], 1.2.840.1 [id number] 54297 Methodi 10:30:00 12:40:50 Visit Kris 49450.1.[address] [place] 3.430.2.7 Hospit a .3.617522 l .8 2022-10-13 2022-10-13 [facility], 1.2.840.1 [id number] 70911 29160 Methodi 10:30:00 12:40:50 Visit Kris 42744.1.[address] [place] 3.430.2.7 Hospit a .3.303656 l .8 2022-10-13 2022-10-13 [facility], 1.2.840.1 [id number] 2099 [id number] Methodi 12:18:46 12:18:46 Encounter Kris 75053.1.[address] [place] 3.430.2.7 Hospit a .3.679879 l .8 2022-10-13 2022-10-13 [facility], 1.2.840.1 [id number] 2099 [id number] Methodi 12:18:46 12:18:46 Encounter Kris 99365.1.[address] [place] 3.430.2.7 Hospit a .3.339604 l .8 2022-10-13 2022-10-13 [facility], 1.2.840.1 [id number] 2099 [id number] Methodi 12:15:00 12:17:00 Encounter [place] [address]141.1.[address] Toan 3.430.2.7 Hospit a .3.685816 l .8 2022-10-13 2022-10-13 [facility], 1.2.840.1 [id number] 2099 [id number] Methodi 12:15:00 12:17:00 Encounter [place] [address].1.[address] Toan 3.430.2.7 Hospit a .3.669881 l .8 2022-10-06 2022-10-06 [facility] 1.2.840.1 [id number] 2099 [id number] Methodi 00:00:00 00:00:[address] 3.430.2.7 Hospit a .3.531294 l .8 2022-10-06 2022-10-06 [facility] 1.2.840.1 [id number] 2099 [id number] Methodi 00:00:00 00:00:[address] 3.430.2.7 Hospit a .3.402697 l .8 2022-09-20 2022-09-20 [facility], 1.2.840.1 [id number] 897 [id number] Methodi 10:27:36 23:59:00 Encounter Yoan 06892.1.1 377 [address] t 3.430.2.7 Hospit a .3.225999 l .8 2022-09-20 2022-09-20 [facility], 1.2.840.1 [id number] 309 [id number] Methodi 10:27:36 23:59:00 Encounter Yoan 86164.1.1 377 s t 3.430.2.7 Hospit a .3.574391 l .8 2022-09-20 2022-09-20 [facility] 1.2.840.1 [id number] 2100 [id number] Methodi 11:00:00 11:18:06 Visit Yoan 98422.1.[address] 3.430.2.7 Hospit a .3.311439 l .8 2022-09-20 2022-09-20 [facility], 1.2.840.1 [id number] 2099 [id number] Methodi 11:00:00 11:18:06 Visit Yoan 51395.1.[address] 3.430.2.7 Hospit a .3.316108 l .8 2022-09-20 2022-09-20 [facility], 1.2.840.1 [id number] 453 [id number] Methodi 10:26:57 10:26:57 Encounter Yoan 27690.1.1 265 s t 3.430.2.7 Hospit a .3.935298 l .8 2022-09-20 2022-09-20 [facility], 1.2.840.1 [id number] 915 [id number] Methodi 10:26:57 10:26:57 Encounter Yoan 00241.1.1 265 s t 3.430.2.7 Hospit a .3.374410 l .8 2022-09-20 2022-09-20 [facility], 1.2.840.1 [id number] 2099 [id number] Methodi 00:00:00 00:00:00 Only Yoan 14510.1.[address] 3.430.2.7 Hospit a .3.897349 l .8 2022-09-20 2022-09-20 [facility], 1.2.840.1 [id number] 2099 [id number] Methodi 00:00:00 00:00:00 Only Yoan 96224.1.[address] 3.430.2.7 Hospit a .3.975128 l .8 2022-09-15 2022-09-15 Telephone Zina, 1.2.840.1 [id number] 2099 [id number] Methodi 00:00:00 00:00:[address] 3.430.2.7 Hospit a .3.013414 l .8 2022-09-15 2022-09-15 Telephone Zina, 1.2.840.1 [id number] 2099 [id number] Methodi 00:00:00 00:00:[address] 3.430.2.7 Hospit a .3.013558 l .8 2022-08-25 2022-08-25 Outpatient [facility] DM [id number]- [facility] 00:00:00 00:00:00 [address] [facility] 2022-06-08 2022-06-08 Travel 1.2.840.1 1.2.816.310 2220 108793 Methodi 00:00:00 00:00:[address] 3.430.2.7 0.2.7.3.698 Ho spita .3.313075 084.8 l .8 2022-06-08 2022-06-08 Travel 1.2.840.1 1.2.244.877 5879 128562 Methodi 00:00:00 00:00:[address] 3.430.2.7 0.2.7.3.698 Ho spita .3.435072 084.8 l .8 2022-05-26 2022-05-26 Travel 1.2.840.1 1.2.479.052 4077 537407 Methodi 00:00:00 00:00:[address] 3.430.2.7 0.2.7.3.698 Ho spita .3.288957 084.8 l .8 2022-05-26 2022-05-26 Transcribe Bounds 1.2.840.1 [id number] 644 [id number] Methodi 00:00:00 00:00:00 Harinder Jimenez, 76158.1.[address] Noemy 3.430.2.7 Hospit a .3.156616 l .8 2022-05-26 2022-05-26 Travel 1.2.840.1 1.2.643.764 4802 793489 Methodi 00:00:00 00:00:[address] 3.430.2.7 0.2.7.3.698 Ho spita .3.664226 084.8 l .8 2022-05-26 2022-05-26 Transcribe Bounds 1.2.840.1 [id number] 970 [id number] Methodi 00:00:00 00:00:00 Harinder Jimenez, 46976.1.[address] Noemy 3.430.2.7 Hospit a .3.255494 l .8 2022-04-24 2022-04-24 [facility], 1.2.840.1 [id number] 76484 Methodi 16:20:00 16:25:[address] [place] 3.430.2.7 Hospit a .3.010434 l .8 2022-04-24 2022-04-24 Lab Colomer, 1.2.840.1 [id number] 97108 Methodi 16:20:00 16:25:[address] [place] 3.430.2.7 Hospit a .3.825450 l .8 2022-04-24 2022-04-24 Travel 1.2.840.1 1.2.444.982 2519 [id number] Methodi 00:00:00 00:00:[address] 3.430.2.7 0.2.7.3.698 Ho spita .3.877506 084.8 l .8 2022-04-24 2022-04-24 Travel 1.2.840.1 1.2.832.578 7709 988404 Methodi 00:00:00 00:00:[address] 3.430.2.7 0.2.7.3.698 Ho spita .3.319174 084.8 l .8 2022-04-24 2022-04-24 Travel 1.2.840.1 1.2.301.364 8132 728394 Methodi 00:00:00 00:00:[address] 3.430.2.7 0.2.7.3.698 Ho spita .3.125448 084.8 l .8 2022-04-24 2022-04-24 Travel 1.2.840.1 1.2.743.685 2386 974112 Methodi 00:00:00 00:00:[address] 3.430.2.7 0.2.7.3.698 Ho spita .3.237922 084.8 l .8 Results Test Description Test Time Test Results Result Source Comments Comments XR Knee 3 Views Patient: KATJA GALE MRN: Right 9 [id number] 18:41:16 Date/Time12/02/2018 18:21 CDTReason for ExamInjuryReportDictation location [id number] knee 3 viewsHISTORY: Pain following injury.COMMENT: Patient [...]
[2022-12-29] MEDS ORDERED: CYCLOBENZAPRINE 10 MG TAB ONE (13:03)
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
--- NOTE | 2022-12-29 13:29 | RAD REPORT ---
EXAM DESCRIPTION: RAD - Knee Left 3 View - 12/29/2022 1:11 pm CLINICAL HISTORY: Left knee pain FINDINGS: No fracture or dislocation is seen. No evidence of loosening of the knee prosthesis
--- NOTE | 2022-12-29 13:32 | RAD REPORT ---
EXAM DESCRIPTION: RAD - Shoulder Left 2 View - 12/29/2022 1:11 pm CLINICAL HISTORY: Left shoulder pain FINDINGS: No fracture or dislocation is seen. Bones are osteoporotic
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
[2022-12-29 15:31] VITALS: BP 166/70; TEMP 98.9; O2SAT 98
== END 2022-12-29 14:23 | disposition home or self-care (01) ==
LOC: ER 12:24
DX: M25.512 Pain in left shoulder (principal); M54.50 Low back pain, unspecified; M25.562 Pain in left knee; V49.40XA Driver injured in collision with unspecified motor vehicles in traffic accident, initial encounter; I10 Essential (primary) hypertension; Z79.82 Long term (current) use of aspirin
CPT/HCPCS: 72125; 72131; 99283

== ENCOUNTER 2024-07-04 20:02 | Inpatient (IN) | payer MEDICARE ==
[2024-07-05] MEDS ORDERED: PIPERACIL/TAZO 3.375 GM VIAL IV ONE (02:01)
[2024-07-05] MEDS ORDERED: VANCOMYCIN 1 GM/VIAL ONE (02:01)
[2024-07-05] MEDS ORDERED: NA CHLORIDE 0.9% 250 ML ONE (02:01)
[2024-07-05] MEDS ORDERED: NA CHLORIDE 0.9% 100 ML ONE (02:01)
--- NOTE | 2024-07-05 02:06 | EDPHYS ---
Physician Documentation [facility] Name: Kenyatta Sosa Age: 73 yrs Sex: Female : 1950 Arrival Date: 07/04/2024 Time: 20:02 Bed 27 Private MD: ED Physician Skyler Chirinos HPI: 07/05 01:58 This 73 yrs old Female presents to ER via Ambulatory with complaints of Insect Bite. sp3 01:58 73-year-old female with history of COPD, hypertension presents to the ED with chief sp3 complaint abdominal cellulitis which was diagnosed last week from a "spider bite" and patient is been on outpatient antibiotics. Patient was seen in urgent care where surrounding cellulitis was traced and now erythema extends significantly beyond that. Patient sees Dr. Duff for primary care. She denies any fever, headache, neck pain, lymphadenopathy, chest pain, shortness of breath, extremity pain, or any other signs or symptoms on ROS at this time.. Historical: - Allergies: 07/04 21:15 No Known Allergies; jj7 - PMHx: 21:15 Arthritis; COPD (Hypertension); Hypertension; jj7 - PSHx: 21:15 section; Ligation of fallopian tube; Total abdominal hysterectomy; jj7 - Immunization history:: Adult Immunizations up to date. - Infectious Disease History:: Denies. - Social history:: Smoking status: Patient denies any tobacco usage or history of. Patient/guardian denies using alcohol, street drugs, IV drugs. ROS: 07/05 01:58 Constitutional: Negative for fever, chills, and weight loss, Eyes: Negative for injury, sp3 pain, redness, and discharge, ENT: Negative for injury, pain, and discharge, Neck: Negative for injury, pain, and swelling, Cardiovascular: Negative for chest pain, palpitations, and edema, Respiratory: Negative for shortness of breath, cough, wheezing, and pleuritic chest pain, Abdomen/GI: Negative for abdominal pain, nausea, vomiting, diarrhea, and constipation, Back: Negative for injury and pain, MS/Extremity: Negative for injury and deformity, Neuro: Negative for headache, weakness, numbness, tingling, and seizure, Psych: Negative for depression, anxiety, suicide ideation, homicidal ideation, and hallucinations, Allergy/Immunology: Negative for hives, rash, and allergies, Endocrine: Negative for neck swelling, polydipsia, polyuria, polyphagia, and marked weight changes, Hematologic/Lymphatic: Negative for swollen nodes, abnormal bleeding, and unusual bruising, All other systems are negative, Exam: 01:59 Constitutional: This is a well developed, well nourished patient who is awake, alert, sp3 and in no acute distress. Head/Face: Normocephalic, atraumatic. Eyes: Pupils equal round and reactive to light, extra-ocular motions intact. Lids and lashes normal. Conjunctiva and sclera are non-icteric and not injected. Cornea within normal limits. Periorbital areas with no swelling, redness, or edema. Neck: Trachea midline, no thyromegaly or masses palpated, and no cervical lymphadenopathy. Supple, full range of motion without nuchal rigidity, or vertebral point tenderness. No Meningismus. Chest/axilla: Normal chest wall appearance and motion. Nontender with no deformity. No lesions are appreciated. Cardiovascular: Regular rate and rhythm with a normal S1 and S2. No gallops, murmurs, or rubs. Normal PMI, no JVD. No pulse deficits. Respiratory: Lungs have equal breath sounds bilaterally, clear to auscultation and percussion. No rales, rhonchi or wheezes noted. No increased work of breathing, no retractions or nasal flaring. Abdomen/GI: Soft, non-tender, with normal bowel sounds. No distension or tympany. No guarding or rebound. No evidence of tenderness throughout. Back: No spinal tenderness. No costovertebral tenderness. Full range of motion. MS/ Extremity: Pulses equal, no cyanosis. Neurovascular intact. Full, normal range of motion. Neuro: Awake and alert, GCS 15, oriented to person, place, time, and situation. Cranial nerves II-XII grossly intact. Motor strength 5/5 in all extremities. Sensory grossly intact. Cerebellar exam normal. Normal gait. Psych: Awake, alert, with orientation to person, place and time. Behavior, mood, and affect are within normal limits. 01:59 Skin: Large area across the lower abdominal wall of cellulitis beyond the trace line from her prior urgent care visit.. Vital Signs: 07/04 21:09 BP 172 / 80; Pulse 84; Resp 17; Temp 97.6; Pulse Ox 98% ; Weight 98.43 kg; Height 5 ft. jj7 6 in. ; Pain 09/02; 07/05 01:52 BP 156 / 62; Pulse 87; Resp 17; Pulse Ox 100% ; vc1 02:15 BP 166 / 73; Pulse 81; Resp 16; Pulse Ox 100% on R/A; dd2 02:45 BP 178 / 75; Pulse 71; Resp 16; Pulse Ox 97% on R/A; dd2 03:15 BP 178 / 83; Pulse 78; Resp 17; Pulse Ox 97% on R/A; dd2 03:45 BP 174 / 73; Pulse 79; Resp 16; Pulse Ox 100% on R/A; dd2 07/04 21:09 Body Mass Index 35.02 (98.43 kg, 167.64 cm) [facility] 07/04 21:09 Pain Scale: Adult [facility] MDM: 07/04 21:20 Medical Screening Exam initiated sp3 07/05 01:59 Data reviewed: vital signs, nurses notes, lab test result(s). ED course: 73-year-old sp3 female with abdominal wall cellulitis with failed outpatient antibiotics. Patient will need to be admitted to the hospital. Laboratory values pending. Vancomycin and Zosyn ordered IV. Patient to be admitted to the hospitalist service.. 02:05 ED course: Discussed with Dr. Garcia who will be seeing the patient after labs are sp3 back.. 07/05 01:47 Order name: Blood Culture Adult (2) sp3 07/05 01:47 Order name: CBC with Diff sp3 07/05 01:47 Order name: CMP sp3 07/05 01:47 Order name: Lactate w/ 2H reflex if indic. sp3 07/05 01:47 Order name: Protime (+inr) sp3 07/05 02:31 Order name: Basic Metabolic Panel EDMS 07/05 02:31 Order name: Basic Metabolic Panel EDMS 07/05 02:31 Order name: CBC with Automated Diff EDMS 07/05 02:31 Order name: CBC with Automated Diff EDMS 07/05 02:31 Order name: Lipid Profile EDMS 07/05 02:31 Order name: Lipid Profile EDMS 07/05 09:24 Order name: Potassium EDMS 07/05 02:32 Order name: Abdomen Exam Limited EDMS 07/05 01:47 Order name: IV Saline Lock - Large Bore; Complete Time: 02:09 sp3 07/05 01:47 Order name: Labs collected and sent; Complete Time: 02:09 sp3 07/05 01:47 Order name: Vital Signs; Complete Time: 02:16 sp3 Administered Medications: 02:16 Drug: Piperacillin-Tazobactam IVPB 3.375 grams IVPB once over 60 mins; (mix in NS 100 dd2 mL) Route: IVPB; Infused Over: 60 mins; Site: right antecubital; 03:18 Follow up: Response: No adverse reaction; IV Status: Completed infusion; IV Intake: dd2 100ml 03:31 Drug: vancoMYCIN IVPB 1 grams IVPB once over 2 hrs Route: IVPB; Infused Over: 2 hrs; dd2 Site: right antecubital; Disposition Summary: 07/05/24 02:05 Hospitalization Ordered Notes: Hospitalization Status: Inpatient Admission sp3 Provider: Prince Marivel sp3 Condition: Stable sp3 Problem: an acute exacerbation sp3 Symptoms: have worsened sp3 Bed/Room Type: Standard sp3 Location: Telemetry/MedSurg (Inpatient)(07/05/24 13:19) ja Room Assignment: 215(07/05/24 13:19) [facility] Diagnosis - Cellulitis, failed outpatient treatment sp3 Forms: - Medication Reconciliation Form sp3 - SBAR form sp3 - Leadership Thank You Letter sp3 Signatures: Dispatcher [employer] Calli Peralta RN Quinn Cronin RN RN ja1 Skyler Chirinos MD MD sp3 Shawn Jimenez RN RN jjNEGRITO BALDERAS RN RN dd2 Corrections: (The following items were deleted from the chart) 01:48 01:48 BLOOD CULTURE*+BA.LAB.BRZ ordered. EDMS EDMS 01:48 01:48 CBC+H.LAB.BRZ ordered. EDMS EDMS 01:48 01:48 COMPREHENSIVE METABOLIC PANEL+C.LAB.BRZ ordered. EDMS EDMS 01:48 01:48 LACTATE+C.LAB.BRZ ordered. EDMS EDMS 01:48 01:48 PROTIME (+INR)+COAG.LAB.BRZ ordered. EDMS EDMS 03:05 02:05 Telemetry/MedSurg (Inpatient) sp3 cg 03:05 02:05 sp3 cg 13:19 03:05 [facility] ER HOLD cg ja1 13:19 03:05 ERHOLD- cg ja1
--- NOTE | 2024-07-05 02:06 | ER ---
Nurse's Notes [facility] Name: Kenyatta Sosa Age: 73 yrs Sex: Female : 1950 Arrival Date: 07/04/2024 Time: 20:02 Bed 27 Private MD: Diagnosis: Cellulitis, failed outpatient treatment Presentation: 07/04 21:09 Chief complaint: Patient states: POSS INSECT BITE TO LOWER ABD. THINKS SHE WAS BIT 4 jj7 DAYS. WENT TO URGENT 2 DAYS AGO. WAS TOLD IT WAS A SPIDER BITE AND GIVEN ANTIBIOTICS (CEFTIN) AND THE AREA WAS MARKED WITH A PEN. WAS TOLD IF THE REDNESS SPREADS OUTSIDE OF THE LINES GO TO THE ER. Coronavirus screen: At this time, the client does not indicate any symptoms associated with coronavirus-19. Ebola Screen: No symptoms or risks identified at this time. Initial Sepsis Screen: Does the patient meet any 2 criteria? No. Patient's initial sepsis screen is negative. Does the patient have a suspected source of infection? No. Patient's initial sepsis screen is negative. Risk Assessment: Do you want to hurt yourself or someone else? Patient reports no desire to harm self or others. Note TYLENOL THIS MORNING. Onset of symptoms was June 30, 2024. 21:09 Method Of Arrival: Ambulatory [facility] 21:09 Acuity: JAMES 3 jj7 Triage Assessment: 21:15 Bite description: bite sustained to right lower quadrant. General: Appears in no jj7 apparent distress. comfortable, Behavior is calm, cooperative, appropriate for age. Pain: Complains of pain in right lower quadrant. Derm: Skin is red, Reports pain that is 6 out of 10 on a pain scale. 07/05 01:48 Bite description: by an unknown animal, animal information: vaccination(s) is not vc1 applicable. Historical: - Allergies: 07/04 21:15 No Known Allergies; jj7 - PMHx: 21:15 Arthritis; COPD (Hypertension); Hypertension; jj7 - PSHx: 21:15 section; Ligation of fallopian tube; Total abdominal hysterectomy; jj7 - Immunization history:: Adult Immunizations up to date. - Infectious Disease History:: Denies. - Social history:: Smoking status: Patient denies any tobacco usage or history of. Patient/guardian denies using alcohol, street drugs, IV drugs. Screenin/12 01:30 [facility] ED Fall Risk Assessment (Adult) History of falling in the last 3 months, vc1 including since admission No falls in past 3 months (0 pts) Confusion or Disorientation No (0 pts) Intoxicated or Sedated No (0 pts) Impaired Gait No (0 pts) Mobility Assist Device Used No (0 pt) Altered Elimination No (0 pt) Score/Fall Risk Level 0 - 2 = Low Risk Oriented to surroundings, Maintained a safe environment, Educated pt \T\ family on fall prevention, incl call for assistance when getting out of bed, Provided non-skid footwear, Hourly rounding (assess needs \T\ fall precautionary measures) done. Abuse screen: Denies threats or abuse. Nutritional screening: No deficits noted. Tuberculosis screening: No symptoms or risk factors identified. Assessment: 01:46 General: Appears in no apparent distress. uncomfortable, Behavior is calm, cooperative, vc1 appropriate for age. Pain: Complains of pain in right lower quadrant Pain does not radiate. Pain currently is 6 out of 10 on a pain scale. Neuro: Level of Consciousness is awake, alert, obeys commands, Oriented to person, place, time, situation, Appropriate for age. Cardiovascular: Heart tones S1 S2 present Capillary refill < 3 seconds Patient's skin is warm and dry. Respiratory: Airway is patent Respiratory effort is even, unlabored, Respiratory pattern is regular, symmetrical, Breath sounds are clear bilaterally. GI: Abdomen is round non-distended, red inflammed area to lower abdomen. : No deficits noted. No signs and/or symptoms were reported regarding the genitourinary system. EENT: No deficits noted. No signs and/or symptoms were reported regarding the EENT system. Derm: Skin is intact, Skin is dry, Rash noted that is red. Musculoskeletal: Circulation, motion, and sensation intact. Range of motion: intact in all extremities. Vital Signs: 07/04 21:09 BP 172 / 80; Pulse 84; Resp 17; Temp 97.6; Pulse Ox 98% ; Weight 98.43 kg; Height 5 ft. jj7 6 in. ; Pain 6/10; 07/05 01:52 BP 156 / 62; Pulse 87; Resp 17; Pulse Ox 100% ; vc1 02:15 BP 166 / 73; Pulse 81; Resp 16; Pulse Ox 100% on R/A; dd2 02:45 BP 178 / 75; Pulse 71; Resp 16; Pulse Ox 97% on R/A; dd2 03:15 BP 178 / 83; Pulse 78; Resp 17; Pulse Ox 97% on R/A; dd2 03:45 BP 174 / 73; Pulse 79; Resp 16; Pulse Ox 100% on R/A; dd2 07/04 21:09 Body Mass Index 35.02 (98.43 kg, 167.64 cm) j7 07/04 21:09 Pain Scale: Adult [facility] ED Course: 07/04 20:07 Patient arrived in ED. jj6 20:18 Skyler Chirinos MD is Attending Physician. sp3 21:15 Triage completed. j7 21:15 Arm band placed on right wrist. j7 07/05 01:49 Patient has correct armband on for positive identification. Bed in low position. Call vc1 light in reach. Pulse ox on. NIBP on. 01:49 Provided Education on: Plan of care. vc1 02:05 Prince Orta MD is Hospitalizing Provider. sp3 02:09 Inserted saline lock: 20 gauge in right antecubital area, using aseptic technique. mm11 Blood collected. Flushed with 10 mL NS. 02:09 Blood Culture Adult (2) Sent. mm11 02:09 CBC with Diff Sent. mm11 02:10 CMP Sent. mm11 02:10 Lactate w/ 2H reflex if indic. Sent. mm11 02:10 Protime (+inr) Sent. mm11 02:16 NEGRITO GARCIA, RN is Primary Nurse. dd2 03:20 Abdomen Exam Limited In Process Unspecified. EDMS 03:43 No provider procedures requiring assistance completed. dd2 Administered Medications: 02:16 Drug: Piperacillin-Tazobactam IVPB 3.375 grams IVPB once over 60 mins; (mix in NS 100 dd2 mL) Route: IVPB; Infused Over: 60 mins; Site: right antecubital; 03:18 Follow up: Response: No adverse reaction; IV Status: Completed infusion; IV Intake: dd2 100ml 03:31 Drug: vancoMYCIN IVPB 1 grams IVPB once over 2 hrs Route: IVPB; Infused Over: 2 hrs; dd2 Site: right antecubital; Medication: 01:49 VIS not applicable for this client. vc1 Intake: 03:18 IV: 100ml; Total: 100ml. dd2 Outcome: 02:05 Decision to Hospitalize by Provider. sp3 14:40 Patient left the ED. eb Signatures: Dispatcher [employer] EDCT Lena Gallardo Setul, MD MD sp3 Lesli Cardoso jj6 Reanna Dasilva RN RN vc1 Shawn Jimenze RN RN jj7 NEGRITO GARCIA RN RN dd2 dequan chery mm11
[2024-07-05] MEDS ORDERED: HYDROMORPHONE HCL 1 MG/ML INJ IV PRN (02:27)
[2024-07-05] MEDS ORDERED: ONDANSETRON 4 MG/2 ML VIAL IV PRN (02:27)
[2024-07-05] MEDS: ENOXAPARIN 40 MG/0.4 ML SQ SCH (02:35)
--- NOTE | 2024-07-05 02:35 | P.HP ---
Certification for Inpatient Patient admitted to: Inpatient With expected LOS: >2 Midnights Practitioner: I am a practitioner with admitting privileges, knowledge of patient current condition, hospital course, and medical plan of care. Services: Services provided to patient in accordance with Admission requirements found in Title 42 Section 412.3 of the Code of Federal Regulations Patient History Date of Service: 07/05/24 Reason for admission: Abdominal wall pain History of Present Illness: Patient is a 73-year-old female with a past medical history of hypertension, hyperlipidemia and COPD. She presented to ER complaining of abdominal wall pain. She suspects she has had a spider bite which occurred while she was visiting her sister in [place]. Patient has been having increasingly worsening redness, swelling and pain involving the right lower quadrant region. Patient was seen at an urgent care where demarcation lines were drawn. She has noticed that erythema was spreading over the demarcation lines. She failed outpatient antibiotic therapy. Allergies No Known Allergies Allergy (Verified 03/02/22 23:00) Home Medications: Gabapentin 200 mg PO BEDTIME 03/02/22 Amlodipine [Norvasc*] 1 tab PO BEDTIME 12/12/22 Carvedilol [Coreg] 1 tab PO BID 12/12/22 Docusate [Colace Cap*] 100 mg PO BID 12/12/22 Duloxetine [Cymbalta *] 20 mg PO DAILY 12/12/22 Furosemide [Lasix*] 20 mg PO DAILY 12/12/22 Losartan Potassium 50 mg PO BID 12/12/22 Pantoprazole [Protonix Tab*] 40 mg PO ACHS 12/12/22 Tramadol HCl [Ultram] 50 mg PO DAILY 12/12/22 hydroCHLOROthiazide [Hydrochlorothiazide*] 12.5 mg PO DAILY 12/12/22 Aspirin [Aspirin Regimen] 81 mg PO DAILY #30 tab 12/15/22 Atorvastatin Calcium [Lipitor] 40 mg PO BEDTIME #30 tab 12/15/22 Meclizine HCl 25 mg PO TID PRN #30 tab 12/15/22 Ubrogepant [Ubrelvy] 50 mg PO DAILY PRN #30 tab 12/15/22 - Past Medical/Surgical History Diabetic: No -: htn -: arthritis -: COPD -: Peripheral neuropathy -: Migraines -: Dizziness -: tubal ligation -: hysterectomy -: bilateral knee replacement -: back sx -: foot sx -: c. section - Family History Mother -: Diabetes - Social History Alcohol use: Yes CD- Drugs: No Caffeine use: Yes Physical Examination - Physical Exam General: Acute distress HEENT: Atraumatic, Normocephalic Respiratory: Other (Breathing is not labored) Cardiovascular: No edema Gastrointestinal: Soft and benign, Non-distended Integumentary: Skin breakdown, Tenderness/swelling, Erythema, Warmth Neurological: Normal speech Assessment and Plan - Problems (Diagnosis) (1) Abdominal wall cellulitis Current Visit: Yes Status: Acute (2) Hypertension Current Visit: Yes Status: Acute (3) Hyperlipidemia Current Visit: Yes Status: Acute (4) COPD (chronic obstructive pulmonary disease) Current Visit: Yes Status: Acute - Plan Assessment This is a 73-year-old female who is being admitted for acutely worsening abdominal wall cellulitis. This involved the right lower portion of her abdomen. She has some induration in the area. Abdominal wall cellulitis COPD Hypertension Hyperlipidemia Plan: Will admit inpatient with telemetry Start vancomycin and levofloxacin IV fluid infusion Multimodal pain regimen Abdominal ultrasound to rule out abscess Lovenox for DVT prophylaxis Resume rest of home medications upon reconciliation - Advance Directives Does patient have a Living Will: No Does patient have a Durable POA for Healthcare: No
[2024-07-05 02:47] LABS: PT Prothrombin Time 12.8 SECONDS (10-13.0); Protime INR 1.13
[2024-07-05 02:50] LABS: Absolute Basophils 0.1 K/uL (0-0.5); Absolute Eosinophils 0.2 K/uL (0-0.5); Absolute Lymphocytes (CBC) 3.1 K/uL (0.7-4.9); Absolute Monocytes 1.1 K/uL (0.1-1.3); Absolute Neutrophil 9.2 K/uL (1.8-8.0); Basophils % 0.5 % (0-1.3); Eosinophils % 1.6 % (0-4.4); Hematocrit 37.1 % (36.0-45.0); Hemoglobin 12.9 g/dL (12.0-15.0); Lymphocytes % 22.4 % (15.3-44.8); MCH 31.2 pg (27.0-35.0); MCHC 34.8 g/dL (32.0-36.0); MCV 89.6 fL (80-100); MPV 9.8 fL (7.6-11.3); Neutrophils % 67.5 % (41.7-73.7); Platelets 202 thou/uL (152-406); RBC Red Blood Cell Count 4.13 M/uL (3.86-4.86); Red Cell Distribution Width 14.4 % (12.1-15.2)
[2024-07-05 03:00] LABS: Albumin 3.2 g/dL (3.4-5.0); Albumin/Globulin Ratio 0.8 (1.1-1.8); Bilirubin Total 0.7 mg/dL (0.2-1.0); Globulin 3.8 g/dL (2.3-3.5)
[2024-07-05] MEDS: NA CHLORIDE 0.9% 1,000 ML IV SCH (03:00)
[2024-07-05] MEDS: VANCOMYCIN 750 MG in NA CHLORIDE 0.9% 150 ML IVPB ONE (04:45)
[2024-07-05] MEDS ORDERED: Levofloxacin500mg IV 500 MG/100 ML BAG IV ONE (05:53)
[2024-07-05] MEDS ORDERED: NA CHLORIDE 0.9% 1,000 ML ONE (05:54)
[2024-07-05] MEDS: Levofloxacin500mg IV 500 MG/100 ML BAG IV SCH (05:59)
--- NOTE | 2024-07-05 07:14 | RAD REPORT ---
EXAM: Ultrasound abdomen limited CLINICAL DATA: 73 years Female Rule out abdominal wall abscess TECHNICAL DATA: Limited sonographic imaging of the right lower quadrant was performed on 07/05/2024 at 2: 58 AM. Comparison: No prior studies were available for comparison.. FINDINGS: Sonographic imaging of the right lower quadrant was performed in the area of concern corresponding to the site of a bug bite. Doppler imaging reveals increased vascularity in the right lower quadrant surrounding the area of concern. There is also a small irregular complex fluid collection within the subcutaneous soft tissues corresponding to the area of concern consistent with localized edema. This area measures approximately 1.0 x 0.3 x 0.9 cm. A small abscess is not entirely excluded. No add itional focal abnormal areas of increased or decreased echogenicity are identified. There is no evidence of posterior shadowing. IMPRESSION: 1. Small irregular complex fluid collection within the subcutaneous soft tissues of the right lower quadrant corresponding to the area of bug bite. Findings may reflect localized edema versus a small subcentimeter abscess. 2. Increased vascularity in the right lower quadrant surrounding the area of concern consistent wit h hyperemia. Electronically signed by: Pallavi Cerna DO 07/05/2024 05:54 AM CDT Due to temporary technical issues with the [employer] reporting system, reports are being sign ed by the in-house radiologist without review as a courtesy to ensure prompt reporting the interpreting rad iologist is fully responsible for the content of the report. Transcribed Date/Time: 07/05/2024 7:14 AM
[2024-07-05] MEDS: VANCOMYCIN 1 GM in NA CHLORIDE 0.9% 250 ML IVPB SCH (07:30)
[2024-07-05] MEDS: VANCOMYCIN 0.75 GM in NA CHLORIDE 0.9% 150 ML IVPB ONE (08:51)
[2024-07-05] MEDS ORDERED: VANCOMYCIN 2 GM in NA CHLORIDE 0.9% 500 ML IVPB SCH (09:00)
[2024-07-05] MEDS ORDERED: POTASSIUM CL SA 10 MEQ TAB PO ONE (11:21)
[2024-07-05] MEDS ORDERED: ENOXAPARIN 40 MG/0.4 ML SQ ONE (11:22)
--- NOTE | 2024-07-05 11:37 | P.PN ---
Subjective Date of Service: 07/05/24 Chief Complaint: Abdominal wall pain Subjective: No new changes No complaints Review of Systems General: Unremarkable Eyes: Unremarkable ENT: Unremarkable Respiratory: Unremarkable Cardiovascular: Unremarkable Gastrointestinal: Unremarkable Musculoskeletal: Unremarkable Neurological: Unremarkable Physical Examination - Vital Signs Temperature: 97.6 F Blood Pressure: 128/58 Pulse: 90 Respirations: 18 Pulse Ox (%): 99 - Physical Exam General: Alert, Oriented x3 HEENT: Atraumatic Neck: Supple Respiratory: Clear to auscultation bilaterally Cardiovascular: No edema, Normal pulses, Regular rate/rhythm Gastrointestinal: Normal bowel sounds, Hypoactive, Soft and benign Neurological: Normal gait, Normal speech - Studies Laboratory Data (last 24 hrs) 07/05/24 07/05/24 07/05/24 02:00 02:00 02:00 WBC 13.70 H Hgb 12.9 Hct 37.1 Plt Count 202 PT 12.8 INR 1.13 Sodium 138 Potassium 3.0 L BUN 14 Creatinine 0.69 Glucose 98 Total Bilirubin 0.7 AST 15 ALT 23 Alkaline Phosphatase 92 Assessment And Plan - Plan 1. Abdominal cellulitis with small right lower quadrant abscess -Abdominal ultrasound showed evidence of small localized fluid collection in the right lower quadrant concerning for abscess - Currently on vancomycin and levofloxacin - Will consult general surgeon, Dr. Manrique 2. History of essential hypertension - Will resume meds when reconciled
[2024-07-05] MEDS: POTASSIUM CL SA 10 MEQ TAB PO ONE (11:54)
--- NOTE | 2024-07-05 12:35 | PREOPCON ---
Date of Consultation: 07/05/2024 Reason For Consultation: Abdominal wall infection. History Of Present Illness: The patient is a 73-year-old female, who presents to the emergency room with approximately a week history of increasing redness, pain and swelling in the right lower quadran t of her abdomen. She denies any systemic fevers or discharge from the abdominal wall. The patient was in [place] visiting her sister who was at the end of life and this infection started. She went to see a provider in [place] and was started on outpatient antibiotic therapy, which appears to have not succeeded. The patient's symptoms became worse and she came to the emergency room. She denies any sore throat, runny nose, cough, headaches, or dizziness. No chest pain. No fever or chills. Review of Systems: Otherwise unremarkable. Past Medical History: Significant for COPD, hyperlipidemia, hypertension, arthritis, back pain. Past Surgical History: Significant for bilateral tubal ligation, hysterectomy, bilateral knee replac ement, back surgery, foot surgery, . Allergies: NONE. Social History: The patient does not smoke. Drinks alcohol occasionally. Family History: Significant for diabetes, heart disease, and lung cancer in her brother. Physical Examination: Vital Signs: Stable. She is currently afebrile. General: She is awake, alert, oriented x3. Head and Neck: No masses. Chest: Clear. Heart: S1, S2. Abdomen: Soft and nondistended. Positive bowel sounds in the right lower quadrant. There is a larg e area approximately 20 x 20 cm erythema, warmth, edema. Central induration with developing fluctuan ce. Laboratory Data: Shows white count of 13.7. INR is normal. Chemistry reviewed. Her potassium is 3 .0, it is being replaced. Ultrasound of the abdomen reviewed, shows small irregular complex fluid co llection within the subcutaneous soft tissue of the right lower quadrant. Findings may reflect local ized edema versus a small abscess. Assessment: Abscess, cellulitis, right lower quadrant of the abdomen. Recommendation: Admit, n.p.o., IV fluid, IV antibiotics, to the OR in a.m. for incision, drainage, a nd debridement of right abdominal wall abscess. The patient understands risks, benefits, alternative s, and agrees to procedure. The patient is currently on vancomycin and Levaquin. We will check the cultures and adjust antibiotics accordingly and we will institute local wound care. Plan of care was discussed in detail with the patient. SONIA/KRYSTIAN Voice ID: [id number] Report ID: [id number]
[2024-07-05] MEDS: VANCOMYCIN 2 GM in NA CHLORIDE 0.9% 500 ML IVPB SCH (14:00)
[2024-07-05] MEDS: ACETAMINOPHEN 500 MG TAB PO PRN (14:44)
[2024-07-05] MEDS: VANCOMYCIN 500 MG/VIAL ONE (16:40)
[2024-07-05] MEDS: NA CHLORIDE 0.9% 500 ML ONE (16:41)
[2024-07-05] MEDS: HYDROCODONE/APAP 5/325 MG TAB PO PRN (16:54)
[2024-07-06 06:42] LABS: Absolute Basophils 0.1 K/uL (0-0.5); Absolute Eosinophils 0.3 K/uL (0-0.5); Absolute Lymphocytes (CBC) 2.3 K/uL (0.7-4.9); Absolute Monocytes 0.7 K/uL (0.1-1.3); Absolute Neutrophil 4.4 K/uL (1.8-8.0); Basophils % 0.7 % (0-1.3); Eosinophils % 3.8 % (0-4.4); Hematocrit 34.3 % (36.0-45.0); Lymphocytes % 29.8 % (15.3-44.8); MCH 31.6 pg (27.0-35.0); MCHC 35.1 g/dL (32.0-36.0); MPV 8.9 fL (7.6-11.3); Monocytes % 9.3 % (3.3-12.3); Neutrophils % 56.4 % (41.7-73.7); Platelets 205 thou/uL (152-406); RBC Red Blood Cell Count 3.81 M/uL (3.86-4.86); Red Cell Distribution Width 14.3 % (12.1-15.2)
[2024-07-06 07:01] LABS: Anion Gap 6.4 mEq/L (5.0-15.0); Potassium 3.4 mEq/L (3.5-5.1)
[2024-07-06] MEDS: Ringers Lactate 1,000 ML IV ONE (07:30)
[2024-07-06] MEDS ORDERED: FENTANYL CITR 100 MCG/2 ML ONE (07:45)
[2024-07-06] MEDS ORDERED: propofoL 200 MG/20 ML VIAL IV ONE (07:45)
[2024-07-06] MEDS ORDERED: LIDOCAINE 2% MPF 5 ML VIAL ONE (07:45)
[2024-07-06] MEDS ORDERED: ONDANSETRON 4 MG/2 ML VIAL ONE (07:45)
[2024-07-06] MEDS ORDERED: MIDAZOLAM HCL 2 MG/2 ML INJ ONE (07:46)
[2024-07-06] MEDS: BUPIVACAINE 0.5% PF 10 ML VIAL ONE (08:33)
--- NOTE | 2024-07-06 08:45 | P.OP ---
Date of Service: 07/06/24 Preop diagnosis: Abdominal wall abscess and cellulitis right lower quadrant Postop diagnosis: Same Procedure performed: Incision, drainage and debridement right lower quadrant abdominal wall abscess Surgeon: Dimas Manrique MD Water Rights Specialist: None Estimated blood loss: Minimal Specimen: Pus Findings: As above Anesthesia: General Complications: None Drains: None Fluids and blood products: Nonapplicable Disposition: Recovery room Operative note: Patient brought to the OR and placed in supine position. General anesthesia began. Patient prepped and draped in usual sterile fashion. Marcaine 0.5%. Locally for postop pain control. 15 blade used to make a 4 cm incision through the subcutaneous tissue. Bleeding controlled with cautery. Deep to the subcutaneous tissue a large abscess was encountered. Pus under pressure was evacuated. Cultures were done. Loculations were broken. Necrotic tissue was debrided. Wound irrigated and bleeding controlled cautery. Wet-to-dry normal saline dressing change applied. Patient tolerated procedure in stable condition taken to recovery room in good general condition. CC:
[2024-07-06] MEDS: HYDROMORPHONE HCL 1 MG/ML INJ ONE (09:10)
--- NOTE | 2024-07-06 10:56 | P.PN ---
Subjective Date of Service: 07/06/24 Chief Complaint: Abdominal wall pain No complaints Review of Systems 10-point ROS is otherwise unremarkable Physical Examination - Vital Signs Temperature: 97.5 F Blood Pressure: 139/66 Pulse: 80 Respirations: 18 Pulse Ox (%): 97 - Physical Exam General: Alert HEENT: Atraumatic Neck: Supple Respiratory: Clear to auscultation bilaterally Cardiovascular: No edema Capillary refill: <2 Seconds Gastrointestinal: Hypoactive, Soft and benign, Other (surgical dressing in place) Neurological: Normal gait, Normal strength at 5/5 x4 extr Assessment And Plan - Plan 1. Abdominal cellulitis with small right lower quadrant abscess -Abdominal ultrasound showed evidence of small localized fluid collection in the right lower quadrant concerning for abscess - On 07/06/2024, s/p I&D with removal of large pocket of abscess - Currently on vancomycin and levofloxacin - will consult ID 2. History of essential hypertension - Will resume meds when reconciled
[2024-07-06] MEDS: DIPHENHYDRAMINE 50 MG/ML VIAL IV ONE (15:12)
[2024-07-06] MEDS ORDERED: MECLIZINE HCL 12.5 MG TAB PO PRN (16:46)
[2024-07-06] MEDS: carvediloL 3.125 MG TAB PO SCH (17:45)
[2024-07-06] MEDS: DOCUSATE NA 100 MG CAP PO SCH (18:48)
[2024-07-06] MEDS ORDERED: DOCUSATE NA 100 MG CAP PO SCH (21:00)
[2024-07-06] MEDS: LOSARTAN POTASSIUM 50 MG TABLET PO SCH (21:11)
[2024-07-06] MEDS: ATORVASTATIN 40 MG TAB PO SCH (21:11)
[2024-07-06] MEDS: GABAPENTIN 100 MG CAP PO SCH (21:11)
[2024-07-06] MEDS: AMLODIPINE 2.5 MG TAB PO SCH (21:11)
[2024-07-07 04:29] LABS: Absolute Basophils 0.1 K/uL (0-0.5); Absolute Eosinophils 0.3 K/uL (0-0.5); Absolute Lymphocytes (CBC) 2.4 K/uL (0.7-4.9); Absolute Monocytes 0.7 K/uL (0.1-1.3); Basophils % 0.9 % (0-1.3); Hematocrit 31.6 % (36.0-45.0); Hemoglobin 11.1 g/dL (12.0-15.0); MCH 31.6 pg (27.0-35.0); MCHC 35.3 g/dL (32.0-36.0); MCV 89.5 fL (80-100); MPV 9.1 fL (7.6-11.3); Monocytes % 11.4 % (3.3-12.3); Neutrophils % 45.7 % (41.7-73.7); Platelets 202 thou/uL (152-406); RBC Red Blood Cell Count 3.52 M/uL (3.86-4.86); Red Cell Distribution Width 14.3 % (12.1-15.2)
--- NOTE | 2024-07-07 06:54 | P.PN ---
Date of Service: 07/07/24 Subjective Chief Complaint: Abdominal wall pain Status post I&D abdominal wall cellulitis, tolerating diet, afebrile PT OT ordered to encourage out of bed Review of Systems 10-point ROS negative unless listed in HPI Physical Examination - Vital Signs Reviewed - Physical Exam General: Alert oriented x 3, afebrile HEENT: Atraumatic Neck: Supple Respiratory: Clear to auscultation bilaterally Cardiovascular: No edema Capillary refill: <2 Seconds Gastrointestinal: normoactive, Soft and benign, Other (surgical dressing in place) Neurological: Normal gait, Normal strength at 5/5 x4 extr Assessment And Plan - Plan 1. Abdominal cellulitis with small right lower quadrant abscess -Abdominal ultrasound showed evidence of small localized fluid collection in the right lower quadrant concerning for abscess - On 07/06/2024, s/p I&D with removal of large pocket of abscess - Currently on vancomycin and cefepime, stool softeners added - will consult ID -Blood cultures no growth, wound cultures pending -PT OT eval 2. History of essential hypertension 3.Hyperlipidemia 4. COPD -Resume home meds Full code DVT Lovenox
[2024-07-07] MEDS: DULOXETINE 20 MG CAP PO SCH (08:07)
[2024-07-07] MEDS: PANTOPRAZOLE 40MG TABLET PO SCH (10:28)
[2024-07-07] MEDS: CEFEPIME 1 GM in NA CHLORIDE 0.9% 100 ML IV SCH (10:29)
[2024-07-07] MEDS: VANCOMYCIN 1 GM in NA CHLORIDE 0.9% 250 ML IVPB SCH (14:16)
--- NOTE | 2024-07-07 16:26 | PN ---
Date of Progress Note: 07/07/2024 Subjective: The patient is awake, alert. No complaints. Objective: Vital Signs: Stable. Afebrile. Abdomen: Soft. She still has redness around the wound, but it is improving. There is some indurati on, but no fluctuance. Laboratory Data: Cultures are still pending. Her white count is 6.5. Assessment: Status post incision, drainage, and debridement of right abdominal wall abscess. Recommendations: Continue IV antibiotics. Check cultures and adjust antibiotics accordingly. Wound care is ordered. Hopefully, discharge in a day or 2. /MODL Voice ID: [id number] Report ID: [id number]
--- NOTE | 2024-07-07 16:51 | P.CNS ---
Date of Consult: 07/07/24 reason for consult: abdominal wall cellulitis HPI Pt report had a spider bite to her lower abdomen about a week ago. Was given Ceftin at the urgent care and was told to go to the ER if redness spread outside of the area that was jane with a pen. On 07/06/24, pt had I&D removal with large pocket abscess. was started on vanco and levofloxacin PMH: COPD. HTN, arthritis PSH: C section, Total abdominal hysterectomy RoS: 10 point ROS reviewed and neg unless stated in HPI.Pt report nurse just change her abdomen dressing. Objective General: Alert oriented x 3, not in distress HEENT: Atraumatic Neck: Supple Respiratory: Clear to auscultation bilaterally Cardiovascular: No edema Capillary refill: <2 Seconds Gastrointestinal: normoactive, Soft, ND. wound dressing to right lower abdomen. erythema noted around surgical dressing site culture 07/06/24 right abdomen wound: pending 07/05/24 blood: no growth Assessment and Plan 1. abdominal cellulitis s/p I&D removal large pocket abscess continue on vanco and levofloxacin pending wound culture blood culture no growth continue wound care 2. HTN 3. COPD case discussed and in agreement with Dr Branch
[2024-07-07] MEDS: HYDROMORPHONE HCL 0.5 MG/0.5 ML INJ IV PRN (20:51)
[2024-07-08 05:30] LABS: Absolute Basophils 0.1 K/uL (0-0.5); Absolute Eosinophils 0.4 K/uL (0-0.5); Absolute Lymphocytes (CBC) 2.4 K/uL (0.7-4.9); Absolute Monocytes 0.7 K/uL (0.1-1.3); Absolute Neutrophil 2.2 K/uL (1.8-8.0); Basophils % 1.4 % (0-1.3); Eosinophils % 6.7 % (0-4.4); Hematocrit 33.1 % (36.0-45.0); Hemoglobin 11.6 g/dL (12.0-15.0); Lymphocytes % 42.1 % (15.3-44.8); MCH 31.2 pg (27.0-35.0); MCV 89.1 fL (80-100); MPV 8.3 fL (7.6-11.3); Monocytes % 11.8 % (3.3-12.3); Nucleated Red Blood Cells % 0.1 % (0-0); Platelets 260 thou/uL (152-406); RBC Red Blood Cell Count 3.72 M/uL (3.86-4.86); Red Cell Distribution Width 14.2 % (12.1-15.2)
[2024-07-08 05:50] LABS: Anion Gap 5.4 mEq/L (5.0-15.0); Potassium 3.4 mEq/L (3.5-5.1)
[2024-07-08] MEDS: POTASSIUM CL SA 10 MEQ TAB PO ONE (09:04)
--- NOTE | 2024-07-08 12:06 | PN ---
Date of Progress Note: 07/08/2024 Subjective: The patient is awake, alert. Still complaining of some pain in the right lower quadrant . Objective: Vital Signs: Stable. She is afebrile. Abdomen: Still with erythema and induration on either side of the incision. There is no purulent di scharge. There is still a slight warmth but it is better than before. Laboratory Data: Reviewed. Her white count is 5.8. There is no left shift. Her chemistries review ed. Potassium is a little low, being replaced. Microbiology, the culture is still pending. Assessment: Status post incision, drainage, and debridement of right abdominal wall infected wound. Recommendations: Continue IV antibiotics. Check cultures and adjust antibiotics accordingly. We wi ll continue to monitor the wound closely as she may need another debridement if those indurated area become fluctuant. /MODL Voice ID: [id number] Report ID: [id number]
--- NOTE | 2024-07-08 16:02 | P.PN ---
Subjective Date of Service: 07/08/24 Chief Complaint: Abdominal wall pain Subjective: No chest pain or shortness of breath. No nausea or vomiting. c/o abdominal pain. No obvious bleeding. Looks comfortable in the bed. Objective: General appearance: Alert and comfortable CVS: Normal S1 and S2 Lungs: Clear to auscultation bilaterally Abdomen: Soft, bowel sounds present, dressing present at I&D site Extremities: No lower extremity edema Physical Examination - Vital Signs Temperature: 97.8 F Blood Pressure: 160/79 Pulse: 75 Respirations: 16 Pulse Ox (%): 98 Assessment And Plan - Plan 73-year-old patient with abdominal wall abscess status post I&D, continue IV antibiotics, follow-up on cultures and de-escalate antibiotics. 1. Abdominal cellulitis with right lower quadrant abscess -Abdominal ultrasound showed evidence of small localized fluid collection in the right lower quadrant concerning for abscess - On 07/06/2024, s/p I&D with removal of large pocket of abscess - Currently on vancomycin and cefepime - consulted ID, appreciate recs -Blood cultures no growth, wound cultures pending -plan for another debridement ? - WBC improving. 2. History of essential hypertension: meds adjusted. 3.Hyperlipidemia 4. COPD: home meds 5. Hypokalemia: Replaced 6. Anemia: Secondary to acute illness, monitor closely. Plan discussed with the patient and case management team.
[2024-07-08] MEDS: DOCUSATE NA 100 MG CAP PO SCH (20:55)
[2024-07-08] MEDS: carvediloL 6.25 MG TAB PO SCH (21:01)
--- NOTE | 2024-07-09 02:11 | PN ---
Subjective: The patient is lying in bed. Family by the bedside. Possible repeat surgical intervent ion tomorrow for abscess formation. The patient has already gone through an I and D of abscess. Con tinued to have abdominal pain and redness in the abdominal wall. Objective: Vital Signs: Temperature 97.8, pulse 80, respirations 16, blood pressure 163/84. Lungs: Basal crackles. Heart: S1, S2. Regular. Abdomen: Soft. Bowel sounds present. Abdominal tenderness elicited at the area of cellulitis and a bscess formation in the right lower quadrant. Extremities: No edema. Laboratory Data: WBC 5.8, hemoglobin 11.6, platelets 260. BUN of 8, creatinine 0.6. Blood cultures done on 07/05 shows no growth. Abdominal wound cultures done on 07/06, 3+ coagulase positive with 1 0 to 20 white blood cells. The patient is currently being treated with IV cefepime and vancomycin. Assessment/plan: 1. Abdominal wall cellulitis in a 73-year-old female with history of diabetes mellitus, with history of chronic obstructive pulmonary disease, peripheral neuropathy, hypertension, arthritis. Abdominal wound cultures are growing Staphylococcus aureus, pending sensitivity. We will continue vancomycin a nd cefepime. 2. The patient's leukocytosis has improved. 3. Moderate protein-calorie malnourishment. Continue current treatment. Consider getting procalcitonin. We will follow the patient as needed. NF/MODL Voice ID: [id number] Report ID: [id number]
[2024-07-09 05:08] LABS: Anion Gap 6.1 mEq/L (5.0-15.0); Potassium 4.1 mEq/L (3.5-5.1)
--- NOTE | 2024-07-09 12:09 | P.PN ---
Subjective Date of Service: 07/09/24 Chief Complaint: Abdominal wall pain Subjective: No chest pain or shortness of breath. No nausea or vomiting. c/o abdominal pain. No obvious bleeding. Looks comfortable in the bed. Objective: General appearance: Alert and comfortable CVS: Normal S1 and S2 Lungs: Clear to auscultation bilaterally Abdomen: Soft, bowel sounds present, dressing present at I&D site, minimal saturation of the dressing Extremities: No lower extremity edema Physical Examination - Vital Signs Temperature: 97.9 F Blood Pressure: 136/73 Pulse: 67 Respirations: 16 Pulse Ox (%): 99 Assessment And Plan - Plan 1. Abdominal cellulitis with right lower quadrant abscess -Abdominal ultrasound showed evidence of small localized fluid collection in the right lower quadrant concerning for abscess - On 07/06/2024, s/p I&D with removal of large pocket of abscess - Currently on vancomycin and cefepime - consulted ID, appreciate recs -Blood cultures no growth, wound cultures MRSA - no plan for further debridement - WBC improving. 2. History of essential hypertension: cont current meds 3.Hyperlipidemia 4. COPD: home meds 5. Hypokalemia: Replaced 6. Anemia: Secondary to acute illness, monitor closely. Plan discussed with the patient and case management team. d/w family at bedside. d/w Dr. Manrique, may need IV ABX, ID to decide on final recs.
--- NOTE | 2024-07-09 13:16 | RAD REPORT ---
Procedure: Chest Single View HISTORY: PICC line placement FINDINGS: A PICC line has been placed with its tip in the proximal SVC
[2024-07-09] MEDS: VANCOMYCIN 1 GM in NA CHLORIDE 0.9% 250 ML IVPB SCH (13:24)
[2024-07-09] MEDS: CHLORHEXIDINE GLUCO 4% 120 ML TOP SCH (14:00)
[2024-07-09] MEDS: ACETAMINOPHEN 325 MG TABLET PO PRN (15:28)
--- NOTE | 2024-07-09 16:13 | P.PN ---
Date of Service: 07/09/24 Subjective: Patient is complaining of some wound pain. Objective: Vital signs are stable and she is afebrile. Wound culture showing MR VILLA sensitive to Bactrim and vancomycin. Examination of the wound reveals no active purulence. There is decreased erythema and warmth. The induration has improved markedly. There is no fluctuance. Assessment: Status post incision, drainage and debridement of right lower quadrant abdominal wall abscess Recommendation: I discussed the case with Dr. Branch and we will proceed with 2 weeks of IV antibiotics, Bactroban and Hibiclens soap. Wound care as ordered. Will follow-up the patient in the wound clinic. Plan of care discussed with the hospitalist team. PICC line and social work consult is in place.
--- NOTE | 2024-07-09 17:38 | P.PN ---
Date of Service: 07/09/24 Subjective: The patient is lying in bed. Family by the bedside. No complaints or concern from pt OBJECTIVE Temp Pulse Resp BP Pulse Ox 97.9 F 67 16 136/73 99 07/09/24 12:09 07/09/24 12:09 07/09/24 12:09 07/09/24 12:09 07/09/24 12:09 Lungs: Basal crackles. Heart: S1, S2. Regular. Abdomen: Soft. Bowel sounds present. wound dressing to right lower abdomen. erythema noted around surgical dressing site Extremities: No edema. Laboratory Data: WBC 5.8, hemoglobin 11.6, platelets 260. BUN of 8, creatinine 0.6. Blood cultures 07/05 shows no growth. Abdominal wound cultures 07/06 MRSA Assessment/plan: 1. Abdominal wall cellulitis s/p I&D 07/06/24 removal of large pocket abscess Abdominal wound cultures growing MRSA. continue IV vancomycin for 14 days. Can dc cefepime today. Dr Nobles aware and in agreement with plan. recommend to order procalcitonin. 2. leukocytosis improved. 3. Moderate protein-calorie malnourishment. case round and in agreement with Dr Branch
[2024-07-09] MEDS: Mupirocin NASAL 2 APPL/1 GM TUBE NAS SCH (20:02)
[2024-07-09] MEDS ORDERED: Mupirocin NASAL 2 APPL/1 GM TUBE NAS SCH (21:00)
[2024-07-09] MEDS ORDERED: CEFEPIME 2 GM in NA CHLORIDE 0.9% 100 ML IV SCH (21:00)
[2024-07-10 05:39] LABS: Anion Gap 8.6 mEq/L (5.0-15.0); Potassium 3.6 mEq/L (3.5-5.1)
--- NOTE | 2024-07-10 10:48 | PN ---
Date of Progress Note: 07/10/2024 Subjective: The patient is awake, alert, no new complaints. Still has a little bit of tenderness in the right lower quadrant with moving around. Vitals are stable, afebrile. Wound is clean. There i s no purulence. There is serosanguineous drainage. There is mild induration and erythema around the wound, but there is no warmth. Assessment: Status post incision, drainage, and debridement of right lower quadrant abdominal absces s. Recommendations: The patient has a PICC line in place. She is awaiting discharge planning. She kenny l get 2 weeks of vancomycin. The patient to follow up with me [facility]. /MODL Voice ID: [id number] Report ID: [id number]
--- NOTE | 2024-07-10 12:24 | P.PN ---
Subjective Date of Service: 07/10/24 Chief Complaint: Abdominal wall pain Subjective: No chest pain or shortness of breath. No nausea or vomiting. c/o abdominal pain from the wounds. No obvious bleeding. Looks comfortable in the bed. Objective: General appearance: Alert and comfortable CVS: Normal S1 and S2 Lungs: Clear to auscultation bilaterally Abdomen: Soft, bowel sounds present, dressing present at I&D site, no saturation of the dressing Extremities: trace lower extremity edema Physical Examination - Vital Signs Temperature: 97.8 F Blood Pressure: 123/60 Pulse: 70 Respirations: 18 Pulse Ox (%): 96 - Studies Microbiology Data (last 24 hrs): 07/05/24 02:00 Blood - Blood Aerobic Blood Culture - Final No growth in 5 days. 07/05/24 02:00 Blood - Blood Anaerobic Blood Culture - Final No growth in 5 days. 07/05/24 01:45 Blood - Blood Aerobic Blood Culture - Final No growth in 5 days. 07/05/24 01:45 Blood - Blood Anaerobic Blood Culture - Final No growth in 5 days. Assessment And Plan - Plan 1. Abdominal cellulitis with right lower quadrant abscess -Abdominal ultrasound showed evidence of small localized fluid collection in the right lower quadrant concerning for abscess - On 07/06/2024, s/p I&D with removal of large pocket of abscess - Currently on vancomycin, off cefepime - consulted ID, appreciate recs -Blood cultures no growth, wound cultures MRSA - no plan for further debridement - WBC improving. -PICC line placed 05/11 2. History of essential hypertension: cont current meds 3.Hyperlipidemia 4. COPD: home meds 5. Hypokalemia: Replaced 6. Anemia: Secondary to acute illness, monitor closely. Plan discussed with the patient and case management team. d/w Dr. Maradiaga re: IV ABX, he will place orders 73-year-old patient admitted with abdominal wall cellulitis and abscess, she had I&D, cultures growing MRSA, plan is for 2 weeks of IV antibiotics, PICC line placed yesterday, patient is interested in going to intermediate facility, discussed with case management team, waiting for placement and IV antibiotics set up.
--- NOTE | 2024-07-10 23:38 | PN ---
Subjective: The patient is lying in bed, family by the bedside. Going to be transferred to residential facility today or tomorrow depending on arrangement of the patient's insurance. Continued to have abdominal discomfort at the site of debridement. Objective: Vital Signs: Temperature 97, pulse 68, respirations 18, blood pressure 155/71. Lungs: Basal crackles. Heart: S1, S2. Regular. Abdomen: Soft. Tenderness elicited at the cellulitis area. Extremities: No edema. Laboratory Data: BUN of 11, creatinine 0.5. Currently, the patient is on vancomycin. Assessment/plan: Methicillin-resistant Staphylococcus aureus abscess of the abdominal wall and cellu litis. Continue vancomycin for 2 more weeks. The [facility]. Follow up CBC and BMP, and vancomycin trough level, Sunday and w chazsridevi out of the hospital and on antibiotic. Monitor signs of infection with WBC and fever trends. N o other recommendation. NF/MODL Voice ID: [id number] Report ID: [id number]
[2024-07-11 05:52] LABS: Absolute Basophils 0.1 K/uL (0-0.5); Absolute Eosinophils 0.3 K/uL (0-0.5); Absolute Lymphocytes (CBC) 2.6 K/uL (0.7-4.9); Absolute Monocytes 0.5 K/uL (0.1-1.3); Absolute Neutrophil 3.3 K/uL (1.8-8.0); Eosinophils % 4.3 % (0-4.4); Hemoglobin 11.3 g/dL (12.0-15.0); Lymphocytes % 38.3 % (15.3-44.8); MCH 31.6 pg (27.0-35.0); MCHC 35.4 g/dL (32.0-36.0); MCV 89.3 fL (80-100); MPV 7.8 fL (7.6-11.3); Monocytes % 7.6 % (3.3-12.3); Neutrophils % 48.8 % (41.7-73.7); Nucleated Red Blood Cells % 0.1 % (0-0); Platelets 254 thou/uL (152-406); RBC Red Blood Cell Count 3.59 M/uL (3.86-4.86); Red Cell Distribution Width 14.2 % (12.1-15.2)
[2024-07-11 06:06] LABS: Anion Gap 7.4 mEq/L (5.0-15.0); Potassium 3.4 mEq/L (3.5-5.1)
--- NOTE | 2024-07-11 07:00 | P.PN ---
Subjective Date of Service: 07/11/24 Subjective: No new changes, No C/O voiced Awaiting for placement at [facility] for IV antibiotic therapy Review of Systems 10-point ROS is otherwise unremarkable Physical Examination - Vital Signs Temperature: 97.7 F Blood Pressure: 139/83 Pulse: 74 Respirations: 16 Pulse Ox (%): 98 - Physical Exam General: Alert, In no apparent distress, Oriented x3 HEENT: Atraumatic, PERRLA, EOMI Neck: Supple, JVD not distended Respiratory: Clear to auscultation bilaterally, Normal air movement Cardiovascular: Regular rate/rhythm, Normal S1 S2 Gastrointestinal: Normal bowel sounds, Soft and benign, Non-distended Musculoskeletal: No tenderness Integumentary: Other (Wound on skin clean dry and intact) Neurological: Cranial nerves 3-12 intact - Studies Microbiology Data (last 24 hrs): 07/05/24 02:00 Blood - Blood Aerobic Blood Culture - Final No growth in 5 days. 07/05/24 02:00 Blood - Blood Anaerobic Blood Culture - Final No growth in 5 days. 07/05/24 01:45 Blood - Blood Aerobic Blood Culture - Final No growth in 5 days. 07/05/24 01:45 Blood - Blood Anaerobic Blood Culture - Final No growth in 5 days. Medications List Reviewed: Yes Assessment & Plan - Problems (Diagnosis) (1) Abdominal wall abscess Current Visit: Yes Status: Acute (2) COPD (chronic obstructive pulmonary disease) Current Visit: Yes Status: Acute (3) Hyperlipidemia Current Visit: Yes Status: Acute (4) Hypertension Current Visit: Yes Status: Acute - Plan Plan: 1. Patient with abdominal wall abscess status post I&D; patient had MRSA infection. Patient with secondary cellulitis and will continue with antibiotic therapy. Placement at a [facility] 2. History of hypertension/hyperlipidemia; continue with antihypertensives and statin therapy 3. COPD; continue with neb treatments 4. Anemia; continue with H&H 5. Hypokalemia; continue with potassium supplementation. Discharge Plan: Home Plan to discharge in: Greater than 2 days - Advance Directives Does patient have a Living Will: No Does patient have a Durable POA for Healthcare: Yes - Code Status/Comfort Care Code Status Assessed: Yes Code Status: Full Code Critical Care: No Time Spent Managing PTS Care (In Minutes): 35
--- NOTE | 2024-07-11 11:39 | PN ---
Date of Progress Note: 07/09/2024 Subjective: The patient is awake, alert. No complaints. Objective: Vital Signs: Stable, afebrile. Skin: Examination of the wound reveals decreased erythema and mild induration, but no fluctuance. W ound is clean, dry, intact. There is no purulence. Laboratory Data: White count is 6.8. Assessment: Status post incision, drainage, and debridement of right lower quadrant abdominal wall a bscess. Recommendations: Continue vancomycin. Discharge planning. Wound care as ordered. The patient is c linically stable. /MODL Voice ID: [id number] Report ID: [id number]
[2024-07-11] MEDS: VANCOMYCIN 1 GM in NA CHLORIDE 0.9% 250 ML IVPB SCH (13:14)
--- NOTE | 2024-07-11 18:05 | P.PN ---
Date of Service: 07/11/24 Subjective: The patient is lying in bed. Family by the bedside. No complaints or concern from pt OBJECTIVE Temp Pulse Resp BP Pulse Ox 97.9 F 70 18 135/79 96 07/11/24 16:00 07/11/24 16:00 07/11/24 16:30 07/11/24 16:00 07/11/24 16:00 neuro: aox3 Lungs: Basal crackles. Heart: S1, S2. Regular. Abdomen: Soft. Bowel sounds present. wound dressing to right lower abdomen. erythema and red streak noted around surgical dressing site. pain on palpation around wound dressing Extremities: No edema. Laboratory Data: WBC 5.8, hemoglobin 11.6, platelets 260. BUN of 8, creatinine 0.6. Blood cultures 07/05 shows no growth. Abdominal wound cultures 07/06 MRSA Assessment/plan: 1. Abdominal wall cellulitis s/p I&D 07/06/24 removal of large pocket abscess Abdominal wound cultures growing MRSA. continue IV vancomycin for 14 days. tentative stop date: july 18. Pt to be transferred to nursing facility to complete her IV antibiotic.c. Follow up CBC and BMP, and vancomycin trough level, Sunday and while out of the hospital and on antibiotic. Monitor signs of infection with WBC and fever trends 2. leukocytosis improved. 3. Moderate protein-calorie malnourishment. case round and in agreement with Dr Branch
[2024-07-12 00:18] VITALS: O2SAT 100
[2024-07-12] MEDS: WATER FOR INJ,STERILE 10 ML ONE (06:17)
[2024-07-12] MEDS: ALTEPLASE 2 MG/VIAL IV ONE (06:17)
[2024-07-12 08:02] LABS: Anion Gap 6.2 mEq/L (5.0-15.0); Potassium 4.2 mEq/L (3.5-5.1)
[2024-07-13 05:03] LABS: Absolute Basophils 0.1 K/uL (0-0.5); Absolute Eosinophils 0.3 K/uL (0-0.5); Absolute Lymphocytes (CBC) 2.6 K/uL (0.7-4.9); Absolute Monocytes 0.6 K/uL (0.1-1.3); Absolute Neutrophil 2.8 K/uL (1.8-8.0); Basophils % 1.2 % (0-1.3); Eosinophils % 4.9 % (0-4.4); Hematocrit 33.4 % (36.0-45.0); Hemoglobin 11.5 g/dL (12.0-15.0); MCH 30.9 pg (27.0-35.0); MCHC 34.5 g/dL (32.0-36.0); MCV 89.6 fL (80-100); MPV 7.5 fL (7.6-11.3); Monocytes % 9.2 % (3.3-12.3); Neutrophils % 43.7 % (41.7-73.7); Nucleated Red Blood Cells % 0.1 % (0-0); Platelets 258 thou/uL (152-406); RBC Red Blood Cell Count 3.72 M/uL (3.86-4.86); Red Cell Distribution Width 14.5 % (12.1-15.2)
[2024-07-13 05:20] LABS: Albumin 2.7 g/dL (3.4-5.0); Anion Gap 7.6 mEq/L (5.0-15.0); Bilirubin Total 0.3 mg/dL (0.2-1.0); Globulin 2.6 g/dL (2.3-3.5); Magnesium 1.8 mg/dL (1.6-2.4); Potassium 3.6 mEq/L (3.5-5.1); Protein, Total 5.3 g/dL (6.4-8.2)
[2024-07-14] MEDS: WATER FOR INJ,STERILE 10 ML ONE (01:10)
--- NOTE | 2024-07-14 04:11 | P.PN ---
Date of Service: 07/12/24 Subjective Patient is doing well no new complaints. Awaiting for placement at this time. Physical Examination - Vital Signs Reviewed - Physical Exam General: Alert, In no apparent distress, Oriented x3 Respiratory: Clear to auscultation bilaterally, Normal air movement Cardiovascular: Regular rate/rhythm, Normal S1 S2 Gastrointestinal: Normal bowel sounds, Soft and benign, Non-distended Musculoskeletal: No tenderness Integumentary: Other (Wound on skin clean dry and intact) Neurological: no focal deficits Assessment & Plan - Problems (Diagnosis) (1) Abdominal wall abscess Current Visit: Yes Status: Acute (2) COPD (chronic obstructive pulmonary disease) Current Visit: Yes Status: Acute (3) Hyperlipidemia Current Visit: Yes Status: Acute (4) Hypertension Current Visit: Yes Status: Acute - Plan continue with plan of care as mentioned below: 1. Patient with abdominal wall abscess status post I&D; patient had MRSA infection. Patient with secondary cellulitis and will continue with antibiotic therapy. Placement at a [facility] 2. History of hypertension/hyperlipidemia; continue with antihypertensives and statin therapy 3. COPD; continue with neb treatments 4. Anemia; continue with H&H 5. Hypokalemia; continue with potassium supplementation. Discharge Plan: Home Plan to discharge in: Greater than 2 days - Advance Directives Does patient have a Living Will: No Does patient have a Durable POA for Healthcare: Yes - Code Status/Comfort Care Code Status Assessed: Yes Code Status: Full Code Critical Care: No Time Spent Managing PTS Care (In Minutes): 25
--- NOTE | 2024-07-14 04:12 | P.PN ---
Date of Service: 07/13/24 Subjective Patient Continued to improve and clinical symptoms are stable. Waiting for placement at intermediate facility. Physical Examination - Vital Signs Reviewed - Physical Exam General: Alert, In no apparent distress, Oriented x3 Respiratory: Clear to auscultation bilaterally, Normal air movement Cardiovascular: Regular rate/rhythm, Normal S1 S2 Gastrointestinal: Normal bowel sounds, Soft and benign, Non-distended Musculoskeletal: No tenderness Integumentary: Other (Wound on skin clean dry and intact) Neurological: no focal deficits Assessment & Plan - Problems (Diagnosis) (1) Abdominal wall abscess Current Visit: Yes Status: Acute (2) COPD (chronic obstructive pulmonary disease) Current Visit: Yes Status: Acute (3) Hyperlipidemia Current Visit: Yes Status: Acute (4) Hypertension Current Visit: Yes Status: Acute - Plan Continue with plan of care as mentioned below: 1. Patient with abdominal wall abscess status post I&D; patient had MRSA infection. Patient with secondary cellulitis and will continue with antibiotic therapy. Placement at [facility] 2. History of hypertension/hyperlipidemia; continue with antihypertensives and statin therapy 3. COPD; continue with neb treatments 4. Anemia; continue with H&H 5. Hypokalemia; continue with potassium supplementation. Discharge Plan: Home Plan to discharge in: Greater than 2 days - Advance Directives Does patient have a Living Will: No Does patient have a Durable POA for Healthcare: Yes - Code Status/Comfort Care Code Status Assessed: Yes Code Status: Full Code Critical Care: No Time Spent Managing PTS Care (In Minutes): 25
[2024-07-14 07:32] VITALS: BMI 35.9
--- NOTE | 2024-07-14 10:54 | P.PN ---
Subjective Date of Service: 07/14/24 Chief Complaint: Abdominal wall pain Subjective: No chest pain or shortness of breath. No nausea or vomiting. c/o abdominal pain from the wounds. No obvious bleeding. Looks comfortable in the bed. Objective: General appearance: Alert and comfortable CVS: Normal S1 and S2 Lungs: Clear to auscultation bilaterally Abdomen: Soft, bowel sounds present. Extremities: no lower extremity edema Physical Examination - Vital Signs Temperature: 97.9 F Blood Pressure: 106/56 Pulse: 64 Respirations: 16 Pulse Ox (%): 94 - Studies Medications List Reviewed: Yes Assessment And Plan - Plan 1. Abdominal cellulitis with right lower quadrant abscess -Abdominal ultrasound showed evidence of small localized fluid collection in the right lower quadrant concerning for abscess - On 07/06/2024, s/p I&D with removal of large pocket of abscess - Currently on vancomycin, off cefepime - consulted ID, appreciate recs -Blood cultures no growth, wound cultures MRSA - no plan for further debridement - WBC improving. -PICC line placed 05/11 2. History of essential hypertension: cont current meds 3. Hyperlipidemia 4. COPD: home meds 5. Hypokalemia: Replaced 6. Anemia: Secondary to acute illness, monitor closely. Plan discussed with the patient and case management team. Waiting for placement. 73-year-old patient admitted with abdominal wall cellulitis and abscess, she had I&D, cultures growing MRSA, plan is for 2 weeks of IV antibiotics, PICC line placed, waiting for placement and IV antibiotics set up.
[2024-07-14 12:40] VITALS: BP 130/60; TEMP 97.7
--- NOTE | 2024-07-14 14:31 | P.DS ---
Admission Date: 07/05/24 Discharge Date: 07/14/24 Disposition: TRANSFER TO SNF - MEDICAL Discharge Condition: GOOD Reason for Admission: Abdominal wall pain Hospital Course: Discharge diagnosis: 1. Abdominal cellulitis with right lower quadrant abscess -Abdominal ultrasound showed evidence of small localized fluid collection in the right lower quadrant concerning for abscess - On 07/06/2024, s/p I&D with removal of large pocket of abscess - Currently on vancomycin - consulted ID, appreciate recs -Blood cultures no growth, wound cultures MRSA - no plan for further debridement - WBC improving. -PICC line placed 05/11, IV vanc until 05/20 as per ID 2. History of essential hypertension: cont coreg and losartan, DC's norvasc 3. Anemia: Secondary to acute illness, monitor closely. 4. ? COPD. Not on any meds 5. Hypokalemia: Replaced Hospital course: 73-year-old patient admitted with abdominal wall cellulitis and abscess, she had I&D, she was initiated on broad-spectrum antibiotics, cultures came back positive for MRSA, she was continued on vancomycin, other antibiotic discontinued, ID and surgical team recommended to continue IV antibiotics, she has a PICC line placed, plan is for her to go to SNF and continue IV an tibiotics, she will be seen at the wound care center / ID clinic next week, they will reevaluate for the need for further IV or oral antibiotics depending on wound healing. When I see the patient today she is doing well without any acute problems, case management team notified me that she has a place available at SNF, otherwise no other acute issues going on so I am planning to discharge her to go to care home facility. Vital Signs/Physical Exam: Temp Pulse Resp BP Pulse Ox 97.7 F 60 16 130/60 96 07/14/24 12:00 07/14/24 12:00 07/14/24 12:00 07/14/24 12:00 07/14/24 12:00 Laboratory Data at Discharge: WBC 6.30 thou/uL (4.3-10.9) 07/13/24 04:56 Hgb 11.5 g/dL (12.0-15.0) L 07/13/24 04:56 Hct 33.4 % (36.0-45.0) L 07/13/24 04:56 Plt Count 258 thou/uL (152-406) 07/13/24 04:56 PT 12.8 SECONDS (10-13.0) 07/05/24 02:00 INR 1.13 07/05/24 02:00 Sodium 144 mEq/L (136-145) 07/13/24 04:56 Potassium 3.6 mEq/L (3.5-5.1) D 07/13/24 04:56 BUN 12 mg/dL (7-18) 07/13/24 04:56 Creatinine 0.65 mg/dL (0.55-1.02) 07/13/24 04:56 Glucose 106 mg/dL (74-106) 07/13/24 04:56 Magnesium 1.8 mg/dL (1.6-2.4) 07/13/24 04:56 Total Bilirubin 0.3 mg/dL (0.2-1.0) 07/13/24 04:56 AST 26 U/L (15-37) 07/13/24 04:56 ALT 40 U/L (13-56) 07/13/24 04:56 Alkaline Phosphatase 62 U/L (45-117) 07/13/24 04:56 Triglycerides 55 mg/dL (<150) 07/06/24 06:29 Cholesterol 139 mg/dL (<200) 07/06/24 06:29 HDL Cholesterol 50 mg/dL (40-60) 07/06/24 06:29 Cholesterol/HDL Ratio 2.78 07/06/24 06:29 Home Medications: Gabapentin 200 mg PO BEDTIME 03/02/22 Docusate [Colace Cap*] 100 mg PO BID 12/12/22 Duloxetine [Cymbalta *] 20 mg PO DAILY 12/12/22 Losartan Potassium 50 mg PO BID 12/12/22 Pantoprazole [Protonix Tab*] 40 mg PO ACHS 12/12/22 Atorvastatin Calcium [Lipitor] 40 mg PO BEDTIME #30 tab 12/15/22 Meclizine HCl 25 mg PO TID PRN #30 tab 12/15/22 Ubrogepant [Ubrelvy] 50 mg PO DAILY PRN #30 tab 12/15/22 Hydrocodone 5/APAP 325 [[place] 5/325*] 1 tab PO Q6H PRN #10 tab 07/14/24 carvediloL [Coreg*] 6.25 mg PO BID #60 tab 07/14/24 New Medications: carvediloL [Coreg*] 6.25 mg PO BID #60 tab Hydrocodone 5/APAP 325 [[place] 5/325*] 1 tab PO Q6H PRN #10 tab PRN Reason: Pain Scale 5-7 (Moderate) Physician Discharge Instructions: Wet-to-dry normal saline dressing changes with Santyl daily Diet: AHA Activity: Ad nicolette Followup: Jorge Duff MD [Primary Care Provider] - 1 Week (f/u in 1 week with CBC and CMP) Tommy Branch MD [ACTIVE - CAN ADMIT] - (f/u in 1 week) Dimas Manrique MD [ACTIVE - CAN ADMIT] - 1 Week (Follow-up in the wound healing center in my clinic) Time spent managing pt's care (in minutes): 34
== END 2024-07-14 17:00 | DRG 571 ==
LOC: ER 20:02 → ERHOLD 07-05 02:27 → 2ND 07-05 13:38
PROVIDERS: ADMIT Internal Medicine; ATTEND Hospitalist
PROC: 0JB80ZZ Excision of Abdomen Subcutaneous Tissue and Fascia, Open Approach (ICD-10-PCS; principal; 2024-07-06 08:00)
PROC: 02HV33Z Insertion of Infusion Device into Superior Vena Cava, Percutaneous Approach (ICD-10-PCS; 2024-07-09)
DX: L03.311 Cellulitis of abdominal wall (principal); E44.0 Moderate protein-calorie malnutrition; L02.211 Cutaneous abscess of abdominal wall; E87.6 Hypokalemia; D64.9 Anemia, unspecified; I10 Essential (primary) hypertension; E78.5 Hyperlipidemia, unspecified; M19.90 Unspecified osteoarthritis, unspecified site; E11.42 Type 2 diabetes mellitus with diabetic polyneuropathy; J44.9 Chronic obstructive pulmonary disease, unspecified; B95.62 Methicillin resistant Staphylococcus aureus infection as the cause of diseases classified elsewhere; Z68.36 Body mass index [BMI] 36.0-36.9, adult; Z79.02 Long term (current) use of antithrombotics/antiplatelets; Z79.899 Other long term (current) drug therapy; Z96.653 Presence of artificial knee joint, bilateral; Z90.710 Acquired absence of both cervix and uterus
CPT/HCPCS: 36415; 36569; 71045; 76705; 80048; 80053; 80061; 80202; 82947; 83605; 83735; 84132; 85025; 85610; 87040; 87070; 87075; 87077; 87186; 87205; 96365; 96375; 97116; 97161; 97165; 99284; J0692; J1171; J1200; J1650; J2003; J2250; J2405; J2543; J2704; J2997; J3010; J3370; J7030; J7040; J7050; J7120